=== PATIENT | female | born 1945 | race Caucasian/White ===

== ENCOUNTER 2016-12-19 14:49 | Emergency (ER) | payer OTHER ==
--- NOTE | ~2016-12-19 | CT57 ---
[facility] A Service of [facility] RADIOLOGY TEXT RESULTS PATIENT: CAROLA YEUNG LOCATION: [facility] : 43 UNIT #: [id number] AGE: [address]: Liam Tucker MD SEX: F ORDER DR: [id number] [facility] [address] [place], [place] [address] [id number] MR#: [id number] Acc #: [id number] NAME: CAORLA YEUNG : 1945 SEX: F STUDY DATE/TIME: 12/19/2016 16:59 UNIT: [facility] ROOM: STUDY DESCRIPTION: CT Chest Wo Cont Attending Physician: Liam Tucker M.D. Ordering Physician: Liam Tucker M.D. Primary Care Physician: Primary Care Physician No MEDICAL IMAGING REPORT This report is preliminary unless electronic signature is present EXAM CT chest without contrast HISTORY Diffuse chest pain for [address] examination was performed with one or more of the following radiation dose reduction techniques: automatic exposure control, adjustment of mA and/or kV according to patient size, and iterative reconstruction. FINDINGS CT chest without contrast demonstrates bulky adenopathy in the medial left supraclavicular fossa measuring 2.1 cm and additional adenopathy in the medial right supraclavicular fossa, measuring 1.2 cm. Adenopathy in the neck base bilaterally, and in the anterior upper mediastinum measuring 1.7 cm. Bulky anterior left upper mediastinal adenopathy measures 1.8 cm. Inferior right paratracheal/precarinal adenopathy measures 2.2 cm. Subcarinal adenopathy measures 1.7 cm. Additional left paraesophageal adenopathy inferior to the left hilum measures 1.8 cm. Moderate bilateral emphysema. Bilobed nodule in the lingula measures 0.9 cm x 1.2 cm. There is also a rounded nodule in the posterior right lower lobe measuring 1.2 cm, with adjacent linear atelectasis, and additional mild linear atelectasis in the posterior left lower lobe. In the presence of the adenopathy, the pulmonary nodules raise suspicion of malignancy. Consider PET/CT for further characterization of these findings. IMPRESSION 1. Bulky adenopathy in the neck base and in the medial left supraclavicular fossa and mild adenopathy in the medial right supraclavicular fossa and bulky multifocal mediastinal adenopathy as detailed above. There are pulmonary nodules, 1 in the posterior right STS. [facility] A Service of [facility] RADIOLOGY TEXT RESULTS PATIENT: CAROLA YEUNG LOCATION: [facility] : 43 UNIT #: [id number] AGE: [address]: Liam Tucker MD SEX: F ORDER DR: lower lobe measuring 1.2 cm and a lobulated nodule in the left lower lung in the lingula measuring 0.9 cm x 1.2 cm. Given the presence of the adenopathy, 1 or both of the pulmonary nodules could be malignant including lung carcinoma. Further characterization of these findings with PET/CT is recommended. 2. Bilateral emphysema, greater in the upper lobes. Dictated by... Carlitos Arrieta M.D. THIS IS AN ELECTRONICALLY VERIFIED REPORT Carlitos Arrieta M.D. at 12/20/2016 2:38 PM MARIA EUGENIA/pérez TD: 12/20/2016 08:16 JOB #: [id number] MEDICAL IMAGING REPORT Page 1 of 1 COPY
--- NOTE | ~2016-12-19 | CR72 ---
[facility] A Service of [facility] RADIOLOGY TEXT RESULTS PATIENT: CAROLA YEUNG LOCATION: [facility] : 44 UNIT #: [id number] AGE: [address]: Liam Tucker MD SEX: F ORDER DR: [id number] [facility] [address] [place], [place] [address] [id number] E MR#: [id number] Acc #: [id number] NAME: CAROLA YEUNG : 1945 SEX: F STUDY DATE/TIME: 12/19/2016 16:22 UNIT: [facility] ROOM: STUDY DESCRIPTION: CR Chest Single View Portable Attending Physician: Liam Tucker M.D. Ordering Physician: Liam Tucker M.D. Primary Care Physician: Primary Care Physician No MEDICAL IMAGING REPORT This report is preliminary unless electronic signature is present EXAM Portable chest HISTORY Chest pain for 2 weeks. Cough and congestion. No injury. FINDINGS The cardiac size and pulmonary vascularity are normal. Mild interstitial prominence in the lower lungs bilaterally, new compared to 04/02/2012, could reflect interstitial scarring or edema. There is also probable linear atelectasis in the right middle lobe versus small amount of fluid in the minor fissure. Mild pleural thickening in the lung apices. IMPRESSION 1. Mild interstitial prominence in the lower lungs bilaterally could be due to edema or atelectasis. No focal airspace consolidation. 2. Additional mild linear atelectasis versus small amount of fluid in the minor fissure in the right lower lung. Dictated by... Carlitos Arrieta M.D. THIS IS AN ELECTRONICALLY VERIFIED REPORT Carlitos Arrieta M.D. at 12/20/2016 2:35 PM DFOzzy/pérez TD: 12/20/2016 07:02 JOB #: [id number] MEDICAL IMAGING REPORT Page 1 of 1 COPY
--- NOTE | ~2016-12-19 | EKG ---
PATIENT: CAROLA YEUNG UNIT #: [id number] Ventricular Rate: 75 BPM Atrial Rate: 75 BPM P-R Interval: 154 ms QRS Duration: 88 ms Q-T Interval: 392 ms QTC Calculation(Bezet): 437 ms P [place]: 74 degrees Calculated R [place]: 81 degrees Calculated T [place]: 78 degrees Diagnosis Line: Normal sinus rhythm with sinus arrhythmia Diagnosis Line: Normal ECG Diagnosis Line: When compared with ECG of 02-APR-2012 07:49, Diagnosis Line: ST no longer elevated in Inferior leads Diagnosis Line: ST no longer depressed in Anterolateral leads Diagnosis Line: T wave inversion no longer evident in Diagnosis Line: Anterolateral leads Diagnosis Line: Confirmed by KOFI DEY MD ([id number]) on Diagnosis Line: 12/21/2016 8:35:52 AM INTERPRETING MD: YISSEL JORDAN
[~2016-12-19 14:49] MED LIST: CHEWABLE ASPIRI81 MG; FAMOTIDINE PO; IBUPROFEN200 M1; OMEPRAZOLE40 MG PO
[2016-12-19 15:54] LABS: POC - CKMB <1.0 ng/mL (0.0-7.9); POC - TROPONIN <0.05 ng/mL (<=0.05)
[2016-12-19 16:36] LABS: BASOPHIL# 0.1 X10e3 (0-0.3); BASOPHIL% 0.6 % (0-2.5); DIFF IND NO; EOSINOPHIL# 0.3 X10e3 (0-0.7); HEMOGLOBIN 14.2 gm/dL (12.0-16.0); LYMPHOCYTE# 3.8 X10e3 (1.0-3.5); LYMPHOCYTE% 35.5 % (17.0-45.0); MEAN CELL VOLUME 95.2 FL (83-96); MEAN CORPUSCULAR HEMOGLOBIN 31.4 PG (28-34); MEAN CORPUSCULAR HGB CONC 32.9 g/dL (30-36); MONOCYTE# 0.5 X10e3 (0-1.0); MONOCYTE% 4.3 % (3.0-12.0); NEUTROPHIL# 6.1 X10e3 (1.5-7.1); NEUTROPHIL% 56.6 % (40-75); PLATELET COUNT 229 X10e3 (140-420); RED BLOOD COUNT 4.51 X10e (3.90-5.30); RED CELL DISTRIBUTION WIDTH 13.5 % (11.0-15.5); WHITE BLOOD COUNT 10.8 X10e3 (4.0-10.5)
[2016-12-19 16:56] LABS: PARTIAL THROMBOPLASTIN TIME 26.9 SECONDS (23.5-31.3); PROTHROMBIN TIME (PATIENT) 10.3 SECONDS (9.6-11.5)
[2016-12-19 17:00] LABS: ALBUMIN SERUM 3.9 g/dL (3.5-5.0); BILIRUBIN, DIRECT 0.1 mg/dL (0.0-0.2); BILIRUBIN,INDIRECT 0.3 mg/dL (0.0-0.9); BILIRUBIN,TOTAL 0.4 mg/dL (0.2-2.0); BUN/CREATININE RATIO 28.33; CALCIUM SERUM 9.5 mg/dL (8.4-10.2); CREATININE SERUM 0.6 mg/dL (0.6-1.4); GLOM FILT RATE Estimated 91.1 mL/min (>60); POTASSIUM 4.4 mmol/L (3.5-5.1); PROTEIN TOTAL SERUM 7.7 g/dL (6.0-8.3)
[2016-12-19 19:06] LABS: POC - CKMB <1.0 ng/mL (0.0-7.9); POC - TROPONIN <0.05 ng/mL (<=0.05)
[2017-01-28] MEDS ORDERED: PERCOCET5/325 PO (11:11)
[2017-04-23] MEDS ORDERED: IPRATR-ALBUTEROL3 ML NEB (10:25)
[2017-04-23] MEDS ORDERED: DEXAMETHASONE4 MG PO (10:25)
[2017-04-23] MEDS ORDERED: ATIVAN PO (10:25)
[2017-04-23] MEDS ORDERED: GUAIFENESIN LA600 M1 PO (10:27)
[2017-04-23] MEDS ORDERED: DURAGESIC1 EAC1 TOP (10:27)
[2017-04-23] MEDS ORDERED: NYSTATIN100000 UN1 PO (10:28)
[2017-04-23] MEDS ORDERED: OXYCONTIN PO (10:28)
[2017-04-23] MEDS ORDERED: SENNA8.6 M1 PO (10:28)
[2017-04-23] MEDS ORDERED: TYL325 PO (10:29)
[2017-04-23] MEDS ORDERED: GAS-X125 MG PO (10:29)
[2017-04-23] MEDS ORDERED: PATIENT'S PHARMACY (10:30)
== END 2016-12-19 20:08 | disposition home or self-care (01) ==
LOC: CED 14:49
PROVIDERS: Emergency Medicine
DX: R07.89 Other chest pain (principal); R59.0 Localized enlarged lymph nodes; I25.2 Old myocardial infarction; F17.200 Nicotine dependence, unspecified, uncomplicated
CPT/HCPCS: 36415; 71010; 71250; 80048; 80076; 82553; 83880; 84484; 85025; 85610; 85730; 93005; 96372; 96374; 99284; J1885

== ENCOUNTER 2017-01-06 09:28 | Emergency (ER) | payer OTHER ==
--- NOTE | ~2017-01-06 | EKG ---
PATIENT: CAROLA YEUNG UNIT #: [id number] Ventricular Rate: 87 BPM Atrial Rate: 87 BPM P-R Interval: 156 ms QRS Duration: 78 ms Q-T Interval: 366 ms QTC Calculation(Bezet): 440 ms P [place]: 79 degrees Calculated R [place]: 75 degrees Calculated T [place]: 71 degrees Diagnosis Line: Normal sinus rhythm Diagnosis Line: Normal ECG Diagnosis Line: When compared with ECG of 19-DEC-2016 15:02, Diagnosis Line: No significant change was found Diagnosis Line: Confirmed by SHAHANA MACHUCA MD ([id number]) on Diagnosis Line: 01/06/2017 2:03:48 PM INTERPRETING MD: SVEN JORDAN
[2017-01-06 10:24] LABS: BASOPHIL# 0.1 X10e3 (0-0.3); BASOPHIL% 0.4 % (0-2.5); DIFF IND YES; EOSINOPHIL# 0.5 X10e3 (0-0.7); EOSINOPHIL% 3.1 % (0.0-7.0); HEMATOCRIT 44.9 % (35.0-45.0); HEMOGLOBIN 14.7 gm/dL (12.0-16.0); LYMPHOCYTE% 40.9 % (17.0-45.0); MEAN CELL VOLUME 95.4 FL (83-96); MEAN CORPUSCULAR HEMOGLOBIN 31.2 PG (28-34); MEAN CORPUSCULAR HGB CONC 32.7 g/dL (30-36); MEAN PLATELET VOLUME 7.5 FL (6.5-11.5); MONOCYTE# 0.9 X10e3 (0-1.0); MONOCYTE% 5.5 % (3.0-12.0); NEUTROPHIL# 8.5 X10e3 (1.5-7.1); NEUTROPHIL% 50.1 % (40-75); PLATELET COUNT 292 X10e3 (140-420); RED BLOOD COUNT 4.71 X10e (3.90-5.30); RED CELL DISTRIBUTION WIDTH 13.7 % (11.0-15.5)
[2017-01-06 10:33] LABS: BILIRUBIN, DIRECT 0.1 mg/dL (0.0-0.2); BILIRUBIN,INDIRECT 0.5 mg/dL (0.0-0.9); BILIRUBIN,TOTAL 0.6 mg/dL (0.2-2.0); BUN/CREATININE RATIO 41.42; CALCIUM SERUM 9.9 mg/dL (8.4-10.2); CREATININE SERUM 0.7 mg/dL (0.6-1.4); GLOM FILT RATE Estimated 86.6 mL/min (>60); POTASSIUM 3.9 mmol/L (3.5-5.1); PROTEIN TOTAL SERUM 7.6 g/dL (6.0-8.3)
[2017-01-06 10:55] LABS: PLATELET ESTIMATE NORMAL (NORMAL)
[2017-01-06 11:17] LABS: POC - CKMB <1.0 ng/mL (0.0-7.9); POC - TROPONIN <0.05 ng/mL (<=0.05)
[2017-01-28] MEDS ORDERED: PERCOCET5/325 PO (11:11)
[2017-04-23] MEDS ORDERED: DEXAMETHASONE4 MG PO (10:25)
[2017-04-23] MEDS ORDERED: ATIVAN PO (10:25)
[2017-04-23] MEDS ORDERED: IPRATR-ALBUTEROL3 ML NEB (10:25)
[2017-04-23] MEDS ORDERED: GUAIFENESIN LA600 M1 PO (10:27)
[2017-04-23] MEDS ORDERED: DURAGESIC1 EAC1 TOP (10:27)
[2017-04-23] MEDS ORDERED: OXYCONTIN PO (10:28)
[2017-04-23] MEDS ORDERED: NYSTATIN100000 UN1 PO (10:28)
[2017-04-23] MEDS ORDERED: SENNA8.6 M1 PO (10:28)
[2017-04-23] MEDS ORDERED: TYL325 PO (10:29)
[2017-04-23] MEDS ORDERED: GAS-X125 MG PO (10:29)
[2017-04-23] MEDS ORDERED: PATIENT'S PHARMACY (10:30)
== END 2017-01-06 12:09 | disposition home or self-care (01) ==
LOC: CED 09:28
PROVIDERS: Emergency Medicine; Physician Assistant Medical
DX: R59.0 Localized enlarged lymph nodes (principal); Z98.51 Tubal ligation status; F17.200 Nicotine dependence, unspecified, uncomplicated
CPT/HCPCS: 36415; 80048; 80076; 82553; 84484; 85025; 93005; 99284

== ENCOUNTER 2017-01-24 11:15 | Emergency (ER) | payer OTHER ==
--- NOTE | ~2017-01-24 | CR72 ---
[facility] A Service of [facility] & [facility] RADIOLOGY TEXT RESULTS PATIENT: CAROLA LYNCH LOCATION: [facility] : 44 UNIT #: [id number] AGE: [address]: Ulises Ruffin MD SEX: F ORDER DR: [id number] [facility] [address] [place], [place] [address] [id number] E MR#: [id number] Acc #: [id number] NAME: CAROLA YEUNG : 1945 SEX: F STUDY DATE/TIME: 01/24/2017 13:22 UNIT: [facility] ROOM: STUDY DESCRIPTION: CR Chest Single View Portable Attending Physician: Ramsey Ruffin M.D. Ordering Physician: Ed Neel Miles M.D. Primary Care Physician: Primary Care Physician No MEDICAL IMAGING REPORT This report is preliminary unless electronic signature is present EXAM Portable AP view of the chest COMPARISON October 19, 2016, April 02, 2012 and March 29, 2012. INDICATIONS 71-year-old female with dyspnea today. FINDINGS Band-like opacity in the right lung base is stable, favoring scarring. There is increased band-like opacity in the left lung base, possibly with new focal nodular opacity since December 19, 2016, measuring up to approximately 1.2 cm in the left lung base. Heart size is within normal limits. There is biapical emphysema. No evidence of pneumothorax or pleural effusion. There is abnormal density in the midline upper chest overlapping the rodolfo and lower trachea consistent with the large anterior mediastinal mass seen on PET CT of 5 days ago. It is noted on that exam that there is invasion and pathologic fracture of the manubrium and superior sternum. IMPRESSION 1. As compared to most recent chest radiograph, there is increased band-like opacity in the left lung base, favoring atelectasis. There is also new nodular density seen measuring up to 1.2 cm in the left lower lobe consistent with the nodule seen on PET CT and suspicious for metastatic disease given its FDG uptake. No evidence of pneumothorax, pleural effusion or consolidative pneumonia. 2. Anterior mediastinal mass is appreciated on the current chest radiograph, which on PET CT represents the patient's metastatic lung cancer with invasion of the sternum and manubrium. [facility]. [facility] A Service of [facility] & [facility] RADIOLOGY TEXT RESULTS PATIENT: CAROLA LYNCH LOCATION: [facility] : 44 UNIT #: [id number] AGE: [address]: Ulises Ruffin MD SEX: F ORDER DR: Dictated by... Michael Hernandez M.D. THIS IS AN ELECTRONICALLY VERIFIED REPORT Michael Hernandez M.D. at 02/01/2017 10:32 PM DEBBIE/cesar TD: 01/24/2017 20:38 JOB #: [id number] MEDICAL IMAGING REPORT Page 1 of 1 COPY
[2017-01-28] MEDS ORDERED: PERCOCET5/325 PO (11:11)
[2017-04-23] MEDS ORDERED: ATIVAN PO (10:25)
[2017-04-23] MEDS ORDERED: DEXAMETHASONE4 MG PO (10:25)
[2017-04-23] MEDS ORDERED: IPRATR-ALBUTEROL3 ML NEB (10:25)
[2017-04-23] MEDS ORDERED: DURAGESIC1 EAC1 TOP (10:27)
[2017-04-23] MEDS ORDERED: GUAIFENESIN LA600 M1 PO (10:27)
[2017-04-23] MEDS ORDERED: OXYCONTIN PO (10:28)
[2017-04-23] MEDS ORDERED: SENNA8.6 M1 PO (10:28)
[2017-04-23] MEDS ORDERED: NYSTATIN100000 UN1 PO (10:28)
[2017-04-23] MEDS ORDERED: GAS-X125 MG PO (10:29)
[2017-04-23] MEDS ORDERED: TYL325 PO (10:29)
[2017-04-23] MEDS ORDERED: PATIENT'S PHARMACY (10:30)
== END 2017-01-24 14:50 | disposition home or self-care (01) ==
LOC: CED 11:15
DX: C78.02 Secondary malignant neoplasm of left lung (principal); C80.1 Malignant (primary) neoplasm, unspecified; Z98.51 Tubal ligation status; Z98.890 Other specified postprocedural states
CPT/HCPCS: 71010; 99283

== ENCOUNTER → 2017-01-28 | Outpatient (CLI) | payer OTHER ==
[~2017-01-28] MED LIST changes: +ATIVAN PO; +COMBIVENT MININEB INH; +DEXAMETHASONE4 MG PO; +DURAGESIC1 EAC1 TD; +DURAGESIC1 EAC1 TOP; +GAS-X125 MG PO; +GUAIFENESIN LA600 M1 PO; +HUMIBID-LA600 MG PO; +IPRATR-ALBUTEROL3 ML NEB; +LEVAQUIN750 M1 PO; +LORAZEPAM1 MG PO; +LOVENOX40 MG/0.4 SUBQ; +NYSTATIN1 EAC1 MT; +NYSTATIN100000 UN1 PO; +OXYCODONE HCL10 MG PO; +OXYCODONE HCL20 M1 PO; +OXYCODONE HCL30 MG PO; +OXYCONTIN PO; +PATIENT'S PHARMACY; +PERCOCET5/325 PO; +PREDNISONE; +ROXANOL W/DR20 MG/ML PO; +SENNA-S TABLET1 EAC1 PO; +SENNA8.6 M1 PO; +SIMETHICONE125 M1 PO; +TYL325 PO
--- NOTE | ~2017-01-28 | XA91 ---
[facility] A Service of [facility] RADIOLOGY TEXT RESULTS PATIENT: CAROLA LYNCH LOCATION: [facility] : 43 UNIT #: [id number] AGE: [address]: Alok Crandall MD SEX: F ORDER DR: [id number] [facility] [address] [place], [place] [address] [id number] O MR#: [id number] Acc #: [id number] NAME: CAROLA LYNCH : 1945 SEX: F STUDY DATE/TIME: 01/28/2017 12:09 UNIT: [facility] ROOM: STUDY DESCRIPTION: XA CVC Tunneled W Port Attending Physician: Alok Crandall M.D., Ph.D. Referring Physician: Alok Crandall M.D., Ph.D. Ordering Physician: Alok Crandall M.D., Ph.D. Primary Care Physician: Primary Care Physician No MEDICAL IMAGING REPORT This report is preliminary unless electronic signature is present EXAM Mediport placement under ultrasound fluoroscopy. HISTORY SUPPLIED Metastatic lung cancer. The procedure intent, risks and options were discussed with the patient through her son who served as an interpreter translator. They both understand and wish to proceed. The patient has extensive toscano and multiple skin grafts over the upper chest and neck. After examining the patient it was felt that the right side was likely more accessible and this was chosen. The skin was prepped and draped over the right neck and upper chest. Ultrasound examination of the right internal jugular shows it to be patent. A micropuncture was performed and subsequently an introducer sheath placed. A ultra slim Mediport was selected. A site was chosen over the right anterior chest wall, skin was anesthetized with 1% Lidocaine with Epinephrine. A port pocket was blunted dissected. in the right side was likely more accessible and this was chosen. The skin was prepped and draped over the right neck and upper chest. Also EXAM Right internal jugular shows a patent. A micropuncture was performed and subsequently a initiation sheath placed. A slim of ultra slim MediPort was selected. A site was chosen over the right anterior chest wall skin was then assessed with the lidocaine with epinephrine. Port pocket was bluntly dissected. The tunneler was passed to the right IJ site and tube was trimmed to 20 cm and deployed with the tip in the SVC. The right IJ site was closed with a single 3-0 Vicryl suture in the deep fascia. The port was closed with a 3-0 Vicryl interrupted suture in the deep fascia. The dermis was not sutured due to the skin grafts. Dermabond was placed over the right IJ site and the anterior chest wall site. The port was STS. [facility] A Service of [facility] RADIOLOGY TEXT RESULTS PATIENT: CAROLA LYNCH LOCATION: [facility] : 44 UNIT #: [id number] AGE: [address]: Alok Crandall MD SEX: F ORDER DR: flushed with Heparin solution. Conscious sedation was administered during the procedure. The patient was monitored by the IR nurse and the procedure very well tolerated. Total fluoroscopy time was 0.4 minutes. A single spot radiograph was obtained. Total exposure estimated at 1 mGy air kerma standard. CONCLUSION Successful placement of a right-sided Mediport, tip in the SVC under ultrasound and fluoroscopy. Dictated by... Bear Hudson M.D. THIS IS AN ELECTRONICALLY VERIFIED REPORT Bear Hudson M.D. at 01/30/2017 9:32 AM NATALIIA/benny TD: 01/28/2017 21:32 JOB #: [id number] MEDICAL IMAGING REPORT Page 1 of 1 COPY
[2017-01-28 11:04] LABS: HEMATOCRIT 39.3 % (35.0-45.0); HEMOGLOBIN 12.8 gm/dL (12.0-16.0); MEAN CELL VOLUME 94.8 FL (83-96); MEAN CORPUSCULAR HGB CONC 32.7 g/dL (30-36); MEAN PLATELET VOLUME 6.9 FL (6.5-11.5); RED BLOOD COUNT 4.14 X10e (3.90-5.30); WHITE BLOOD COUNT 10.9 X10e3 (4.0-10.5)
[2017-01-28 11:37] LABS: PARTIAL THROMBOPLASTIN TIME 28.3 SECONDS (23.5-31.3); PROTHROMBIN TIME (PATIENT) 10.8 SECONDS (10.0-11.7)
== END | disposition home or self-care (01) ==
LOC: CLAB 09:37 → CIVR 09:37
PROVIDERS: Internal Medicine Hematology & Oncology
PROC: 02HV33Z Insertion of Infusion Device into Superior Vena Cava, Percutaneous Approach (ICD-10-PCS; principal; 2017-01-28)
DX: C34.80 Malignant neoplasm of overlapping sites of unspecified bronchus and lung (principal); C77.1 Secondary and unspecified malignant neoplasm of intrathoracic lymph nodes; Z45.2 Encounter for adjustment and management of vascular access device; J43.9 Emphysema, unspecified; Z87.891 Personal history of nicotine dependence
CPT/HCPCS: 36415; 76937; 77001; 85027; 85610; 85730; C1894; J0690; J1642; J2250; J3010

== ENCOUNTER 2017-02-07 18:58 | Emergency (ER) | payer OTHER ==
--- NOTE | ~2017-02-07 | EKG ---
PATIENT: CAROLA LYNCH UNIT #: [id number] Ventricular Rate: 106 BPM Atrial Rate: 106 BPM P-R Interval: 156 ms QRS Duration: 76 ms Q-T Interval: 344 ms QTC Calculation(Bezet): 456 ms P [place]: 79 degrees Calculated R [place]: 80 degrees Calculated T [place]: 61 degrees Diagnosis Line: Sinus tachycardia Diagnosis Line: Otherwise normal ECG Diagnosis Line: Diagnosis Line: Confirmed by KOFI DEY MD ([id number]) on Diagnosis Line: 02/08/2017 11:07:37 AM INTERPRETING MD: YISSEL JORDAN
[~2017-02-07 18:58] MED LIST changes: -ATIVAN PO; -COMBIVENT MININEB INH; -DEXAMETHASONE4 MG PO; -DURAGESIC1 EAC1 TD; -DURAGESIC1 EAC1 TOP; -GAS-X125 MG PO; -GUAIFENESIN LA600 M1 PO; -HUMIBID-LA600 MG PO; -IPRATR-ALBUTEROL3 ML NEB; -LEVAQUIN750 M1 PO; -LORAZEPAM1 MG PO; -LOVENOX40 MG/0.4 SUBQ; -NYSTATIN1 EAC1 MT; -NYSTATIN100000 UN1 PO; -OXYCODONE HCL10 MG PO; -OXYCODONE HCL20 M1 PO; -OXYCODONE HCL30 MG PO; -OXYCONTIN PO; -PATIENT'S PHARMACY; -PREDNISONE; -ROXANOL W/DR20 MG/ML PO; -SENNA-S TABLET1 EAC1 PO; -SENNA8.6 M1 PO; -SIMETHICONE125 M1 PO; -TYL325 PO
[2017-02-07 20:00] LABS: BASOPHIL% 0.3 % (0-2.5); EOSINOPHIL# 0.1 X10e3 (0-0.7); EOSINOPHIL% 1.2 % (0.0-7.0); HEMATOCRIT 38.5 % (35.0-45.0); HEMOGLOBIN 12.7 gm/dL (12.0-16.0); LYMPHOCYTE# 1.8 X10e3 (1.0-3.5); LYMPHOCYTE% 18.2 % (17.0-45.0); MEAN CELL VOLUME 94.5 FL (83-96); MEAN CORPUSCULAR HEMOGLOBIN 31.3 PG (28-34); MEAN CORPUSCULAR HGB CONC 33.1 g/dL (30-36); MEAN PLATELET VOLUME 7.4 FL (6.5-11.5); MONOCYTE# 0.5 X10e3 (0-1.0); MONOCYTE% 4.9 % (3.0-12.0); NEUTROPHIL# 7.4 X10e3 (1.5-7.1); NEUTROPHIL% 75.4 % (40-75); PLATELET COUNT 269 X10e3 (140-420); RED BLOOD COUNT 4.07 X10e (3.90-5.30); RED CELL DISTRIBUTION WIDTH 13.9 % (11.0-15.5); WHITE BLOOD COUNT 9.8 X10e3 (4.0-10.5)
[2017-02-07 20:01] LABS: DIFF IND NO
[2017-02-07 20:10] LABS: POC - CKMB 2.4 ng/mL (0.0-7.9); POC - TROPONIN <0.05 ng/mL (<=0.05)
[2017-02-07 20:19] LABS: ALBUMIN SERUM 3.4 g/dL (3.5-5.0); BILIRUBIN, DIRECT 0.1 mg/dL (0.0-0.2); BILIRUBIN,INDIRECT 0.9 mg/dL (0.0-0.9); BUN/CREATININE RATIO 23.33; CALCIUM SERUM 10.2 mg/dL (8.4-10.2); CREATININE SERUM 0.6 mg/dL (0.6-1.4); GLOM FILT RATE Estimated 91.1 mL/min (>60); POTASSIUM 3.9 mmol/L (3.5-5.1); PROTEIN TOTAL SERUM 7.8 g/dL (6.0-8.3)
[2017-02-07 20:55] LABS: URINE SOURCE CLEAN CATCH
[2017-02-07 21:00] LABS: URINE APPEARANCE CLOUDY; URINE BILIRUBIN NEG (NEG); URINE BLOOD 2+ (NEG); URINE COLOR YELLOW; URINE GLUCOSE NEG (NEG); URINE KETONE 2+ (NEG); URINE LEUKOCYTE ESTERASE 2+ (NEG); URINE NITRATE POS (NEG); URINE PROTEIN TRACE (NEG); URINE SPECIFIC GRAVITY 1.022 (1.003-1.035)
[2017-02-07 21:02] LABS: CULTURE INDICATED? YES; URINE BACTERIA AUWI 4+ (NEGATIVE); URINE SQUAMOUS EPITHELIAL CELL FEW /[HPF]; UWBCS1 AUWI 100-200 (0-5)
[2017-04-23] MEDS ORDERED: IPRATR-ALBUTEROL3 ML NEB (10:25)
[2017-04-23] MEDS ORDERED: DEXAMETHASONE4 MG PO (10:25)
[2017-04-23] MEDS ORDERED: ATIVAN PO (10:25)
[2017-04-23] MEDS ORDERED: GUAIFENESIN LA600 M1 PO (10:27)
[2017-04-23] MEDS ORDERED: DURAGESIC1 EAC1 TOP (10:27)
[2017-04-23] MEDS ORDERED: SENNA8.6 M1 PO (10:28)
[2017-04-23] MEDS ORDERED: NYSTATIN100000 UN1 PO (10:28)
[2017-04-23] MEDS ORDERED: OXYCONTIN PO (10:28)
[2017-04-23] MEDS ORDERED: TYL325 PO (10:29)
[2017-04-23] MEDS ORDERED: GAS-X125 MG PO (10:29)
[2017-04-23] MEDS ORDERED: PATIENT'S PHARMACY (10:30)
== END 2017-02-07 22:05 | disposition home or self-care (01) ==
LOC: CED 18:58
PROVIDERS: Emergency Medicine
DX: N30.90 Cystitis, unspecified without hematuria (principal); C34.90 Malignant neoplasm of unspecified part of unspecified bronchus or lung
CPT/HCPCS: 36415; 80048; 80076; 81003; 82150; 82553; 83690; 84484; 85025; 87086; 87088; 87186; 93005; 96361; 96374; 99284; J2405

== ENCOUNTER 2017-03-04 08:00 | Inpatient (IN) | payer MEDICARE, OTHER ==
[~2017-03-04] VITALS: Ht 157.5 cm; Wt 48.0 kg
--- NOTE | ~2017-03-04 | CO ---
Unit #: [id number] #: [id number] Patient: CAROLA LYNCH [id number] [address] [address] [id number] I MR#: [id number] NAME: CAROLA LYNCH ROOM: 325 Age: 71 Sex: F Admission Date: 03/04/2017 : 1945 Attending Physician: Williams Klein M.D. Primary Care Physician: No Primary Care Physician Consultation Date: 03/05/2017 CONSULTATION REPORT HISTORY OF PRESENT ILLNESS The patient presents today with increasing shortness of breath. She is origin and does not speak Micronesian, but her son who is at the bedside, is fluent in Micronesian, so on questioning she states that she is just having increasing shortness of breath. No pain. The patient is a 71-year-old lady with stage 3b khr-ihrko-iujt lung cancer appears to have had no success with chemoradiation therapy with possible progressive disease, intractable pain. Dr. Alok Crandall, is the primary oncologist. SOCIAL HISTORY The patient quit smoking. No alcohol usage. She is a reformed smoker. She has more than 30 pack smoking history. FAMILY HISTORY Negative for cluster of cancers. ALLERGIES No known drug allergies. CURRENT MEDICATIONS 1. Percocet. 2. Lorazepam. 3. Oxycodone. REVIEW OF SYSTEMS Mainly increasing shortness of breath and ill health. Otherwise six or eight systems were within normal limits. PHYSICAL EXAMINATION GENERAL: She appears uncomfortable. LUNGS: Some rattling sounds. Decreased air entry bilaterally. Worse on the right than the left. HEART: Distant S1 and S2. ABDOMEN: No palpable liver or spleen. EXTREMITIES: NEUROLOGIC: Not examined in detail. PELVIC/BREAST: Not done. ASSESSMENT/PLAN This 71-year-old lady with cjm-hkfto-bara lung cancer stage 3b has evidence of progressive disease, worsening pleural effusion. At this point the benefits and risks were explained. I told the son and he Unit #: [id number] #: [id number] Patient: CAROLA LYNCH interpreted to the mother that we need to do a right-sided thoracocentesis as soon as possible, then depending on the findings proceed further. Dictated by... Mckay Marks M.D. SPS/gz TD: 03/05/2017 14:18 JOB #: [id number] CC: Williams Klein M.D. CONSULTATION REPORT Page 1 of 1 X Mckay Marks MD X CONSULTATION REPORT
--- NOTE | ~2017-03-04 | OR ---
Unit #: [id number] #: [id number] Patient: CAROLA LYNCH [id number] [address] [address] [id number] I MR#: [id number] NAME: CAROLA LYNCH ROOM: 325 Date of Procedure: 03/05/2017 Admission Date: 03/04/2017 Surgeon: Oz Fry M.D. : 1945 Attending Physician: Williams Klein M.D. Primary Care Physician: No Primary Care Physician PROCEDURE OPERATIVE NOTE PREOPERATIVE DIAGNOSIS Pneumonia and lung cancer. POSTOPERATIVE DIAGNOSIS 1. Large thick yellowish secretions obstructing the left main bronchus. 2. Abnormal growth at the level of the left lower lobe and lingula, status post biopsy. 3. Mild narrowing of the trachea, but no endobronchial lesion. PROCEDURE PERFORMED Diagnostic and therapeutic bronchoscopy with washing and endobronchial biopsy. ANESTHESIA MAC sedation. PROCEDURE After informed consent was obtained from the patient, explaining the benefits and risks of this procedure, the patient was prepped and positioned in the appropriate way. After she was premedicated with propofol, the bronchoscope was advanced through the oral cavity and at the level of her vocal cords 2% lidocaine was instilled and the bronchoscope was advanced through the vocal cord with no problem. Then at the last third of her trachea a large thick, yellowish/greenish mucus plug extending into the left main bronchus. It was aspirated with normal saline flushes and then the bronchoscope was advanced into the left main bronchus, which appeared to have mucosal abnormal growth with no discrete mass. Endobronchial biopsy and washing were obtained from that spot, which will be sent for microbiology/cytology. The patient tolerated her procedure well with no immediate complications. The bronchoscope was retracted out. Dictated by... Oz Fry M.D. EA/aniket TD: 03/05/2017 12:16 JOB #: [id number] Unit #: [id number] #: [id number] Patient: CAROLA LYNCH PROCEDURE OPERATIVE NOTE Page 1 of 1 X HAJ ALI, EHAB MD X PROCEDURE OPERATIVE NOTE
--- NOTE | ~2017-03-04 | CO ---
Unit #: [id number] #: [id number] Patient: CAROLA LYNCH [id number] [address] [address] [id number] I MR#: [id number] NAME: CAROLA LYNCH ROOM: 325 Age: 71 Sex: F Admission Date: 03/04/2017 : 1945 Attending Physician: Williams Klein M.D. Primary Care Physician: No Primary Care Physician Consultation Date: 03/04/2017 CONSULTATION REPORT REASON FOR CONSULT Shortness of breath. HISTORY OF PRESENT ILLNESS This is a 71-year-old female who does not speak Trinidadian, and all her history was obtained from her son who is at bedside. 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 The last course was a week ago. The patient presented to the emergency room with a few days' history of progressive shortness of breath and cough with sputum production. There was no fever, chills or night sweats. No nausea, vomiting or diarrhea. In the emergency room her chest x-ray was consistent with right-sided pleural effusion with possible bronchiectasis. PAST MEDICAL HISTORY 1. Malnutrition. 2. Small cell lung cancer. 3. Myocardial infarction and coronary artery disease. PAST SURGICAL HISTORY 1. Tubal ligation. 2. Skin grafts. 3. Port placement. HOME MEDICATIONS 1. Percocet. 2. Oxycodone. 3. Lorazepam. ALLERGIES No known drug allergies. SOCIAL HISTORY No history of smoking, alcohol or drug abuse, but she used to be a smoker before. FAMILY HISTORY Noncontributory. REVIEW OF SYSTEMS Twelve-point review of systems was obtained and was negative except for what was mentioned in the HPI. Unit #: [id number] #: [id number] Patient: CAROLA LYNCH PHYSICAL EXAMINATION GENERAL: The patient is in mild respiratory distress. VITAL SIGNS: Blood pressure 107/53, respiratory rate 22, O2 saturation 96% on 2 liters nasal cannula. HEENT: Atraumatic, normocephalic. PERRLA, EOMI. NECK: Supple. No JVD. No lymphadenopathy. CHEST: Diffuse bilateral rhonchi and wheezing. HEART: S1, S2. No murmur, gallops or rubs. ABDOMEN: Soft, nontender. Bowel sounds positive. No hepatosplenomegaly. EXTREMITIES: No edema or cyanosis. SKIN: No rashes. CYLINDER PRESS OPERATOR: Awake, alert, oriented. No focal motor/sensory deficits. LABS AND OTHER TESTS LABORATORY: Creatinine is 0.6, sodium 128. White blood count 6, hemoglobin 11.5. IMAGING TESTS: Chest x-ray is consistent with right-sided pneumonia and effusion. ASSESSMENT 1. Acute hypoxic respiratory failure. 2. Healthcare-associated pneumonia, gram-negative/methicillin-resistant Staphylococcus aureus. 3. Right-sided pleural effusion. 4. Small cell lung cancer. 5. Malnutrition. PLAN 1. Will continue to wean oxygen down as tolerated. 2. Bronchodilator and mucolytics and antitussives. 3. Broad-spectrum antibiotics pending culture. 4. Will proceed with bronchoscopy in the morning for both diagnostic and therapeutic purposes. 5. Right-sided thoracentesis. 6. Deep vein thrombosis prophylaxis. NOTE: I would like to thank you for allowing me to be part of this patient's care. Dictated by... Kendall Stallworth TD: 03/05/2017 12:09 JOB #: [id number] Unit #: [id number] #: [id number] Patient: ANJANA CLANCYQUEZCAROLA CONSULTATION REPORT Page 1 of 1 X DONI MUSE MD X CONSULTATION REPORT
--- NOTE | ~2017-03-04 | A ---
[facility] Nutrition Therapy DATE: 03/05/17 Patient: CAROLA YEUNG DINESH Physician: GERI Address: [address] [place] [address] Room/Bed: [address] [place] [address], Zip: [place] [address] Admit Date: 03/04/17 Date of : [birth year] Height: 5 2 Weight: 101 46 NUTRITIONAL ASSESSMENT: REASON: Low BMI 71 yo female admitted for SOB, pleural effusion PMH: Lung cancer s/p chemo and radiation, MD, multiple skin grafts Anthropometrics: Ht: 5'2" wt: 46 kg BMI: 18.5 IBW: 50 kg, 92% IBW Labs: Na+ 128 K+ 3.2 Cl- 92 Gluc 127 Alb 3.2 Mg++ 1.4 Accuchecks 134-142 Amylase 55 Meds: Novolog, solu-medrol, phenergan, KCl, D5%, NaCl I/O & Bowel function: 1395/359, last BM 03/05 Skin Integrity: No breakdown noted, no edema Estimated Nutrition Needs: Increased due to PMH and low BMI Diet: NPO (for procedure) Assessment: Chart reviewed, events noted. 71 yo female admitted for SOB and pleural effusion. Pt is currently NPO for bronchial washing, which she just returned from. RD reports that pt's diet will resume in a couple of hours. RD spoke with the pt's son at bedside, as the pt speaks bengali only. Pt's son reports that her weight fluctuates, and that he does not believe she has not lost a significat amount of weight recently. Pt's son also reports that he gets her Ensure supplements to drink at home, and that she typically consumes one per day. RD stressed the importance of adequate, balanced nutritional intake. Pt's son agreed, stating that he will discuss this with the pt. Pt's son denied having any questions at this time. Dx: Underweight RT PMH AEB BMI 18.5. Intervention: 1. Advance to a regular diet once feasible 2. Ensure BID Monitoring, Evaluation and Goals: 1. Oral intake; advance diet, consume 50-100% of meals 2. Labs; Na+, K+, glucose, Mg++, amylase 3. Weight; prevent weight loss [facility] Therapy DATE: 03/05/17 Patient: CAROLA MONTIEL Physician: GERI Address: [address] [place] [address] Room/Bed: [address] [place] [address], Zip: [place] [address] Admit Date: 03/04/17 Date of : [birth year] Height: 5 2 Weight: 101 46 Recommendations: 1. Advance to a regular diet once medically feasible. 2. Once diet advanced, order Ensure chocolate BID with meals. 3. Replete electrolytes to WNL PRN (Na+, K+, Mg++ low) Pt is at mild nutriitonal risk. RD will follow hospital course per protocol. Respectfully, PRISCILLA ESTRADA, RYAN, LD [facility] cc: client file
--- NOTE | ~2017-03-04 | EKG ---
PATIENT: CAROLA LYNCH UNIT #: [id number] Ventricular Rate: 120 BPM Atrial Rate: 120 BPM P-R Interval: 140 ms QRS Duration: 76 ms Q-T Interval: 322 ms QTC Calculation(Bezet): 455 ms P [place]: 80 degrees Calculated R [place]: 82 degrees Calculated T [place]: 64 degrees Diagnosis Line: Sinus tachycardia with occasional Premature Diagnosis Line: ventricular complexes Diagnosis Line: Otherwise normal ECG Diagnosis Line: When compared with ECG of 07-FEB-2017 19:21, Diagnosis Line: Premature ventricular complexes are now Present Diagnosis Line: Confirmed by KOFI DEY MD ([id number]) on Diagnosis Line: 03/04/2017 1:34:09 PM INTERPRETING MD: YISSEL JORDAN
--- NOTE | ~2017-03-04 | CR72 ---
[facility] A Service of [facility] RADIOLOGY TEXT RESULTS PATIENT: CARLOA LYNCH LOCATION: C3A 325-01 : 44 UNIT #: [id number] AGE: [address]: ISMAEL CANAS MD SEX: F ORDER DR: [id number] [facility] [address] [facility]. [place], [place] [address] [id number] E MR#: [id number] Acc #: [id number] NAME: CAROLA LYNCH : 1945 SEX: F STUDY DATE/TIME: 03/04/2017 8:31 UNIT: [facility] ROOM: STUDY DESCRIPTION: CR Chest Single View Portable Attending Physician: Ulises Randall M.D. Ordering Physician: Ulises Randall M.D. Primary Care Physician: Primary Care Physician No MEDICAL IMAGING REPORT This report is preliminary unless electronic signature is present EXAM Portable chest HISTORY Shortness of breath and chest pain for the past day. COMPARISON 01/24/2017. TECHNIQUE A single AP view of the chest was obtained. FINDINGS A port is seen on the right. The tip is in good position. Upper mediastinal widening is again noted and unchanged. Heart size is normal. Aeration at the left lung base has improved since the previous examination. There is still a small band of linear scarring or atelectasis at the left base. There is blunting of the right costophrenic angle suggesting a right-sided effusion versus chronic pleural thickening and volume loss. This is slightly increased since the previous exam. Vascular markings are normal. IMPRESSION 1. Increased density at the right costophrenic angle suggesting an enlarging pleural effusion when compared to the previous exam. 2. Aeration at the left lung base has improved since the previous examination. 3. Mediastinal widening is again noted consistent with mediastinal adenopathy. A port is in satisfactory position. Dictated by... [facility] A Service of [facility] RADIOLOGY TEXT RESULTS PATIENT: CAROLA LYNCH LOCATION: [facility] 325-01 : 44 UNIT #: [id number] AGE: [address]: ISMAEL CANAS MD SEX: F ORDER DR: Liam Farris M.D. THIS IS AN ELECTRONICALLY VERIFIED REPORT Liam Farris M.D. at 03/04/2017 3:39 PM MARY KAY/pérez TD: 03/04/2017 09:45 JOB #: [id number] MEDICAL IMAGING REPORT Page 1 of 1 COPY
--- NOTE | ~2017-03-04 | XA203 ---
[facility] A Service of [facility] RADIOLOGY TEXT RESULTS PATIENT: CAROLA LYNCH LOCATION: [facility] 325-01 : 44 UNIT #: [id number] AGE: [address]: Candace Mittal MD SEX: F ORDER DR: [id number] [place] [id number] [facility]. [place], [place] [address] [id number] I MR#: [id number] Acc #: [id number] NAME: CAROLA LYNCH : 1945 SEX: F STUDY DATE/TIME: 03/05/2017 14:11 UNIT: [address] ROOM: [facility] STUDY DESCRIPTION: XA Thoracentesis Attending Physician: Candace Mittal M.D. Ordering Physician: Oz Fry M.D. Primary Care Physician: No Primary Care Physician MEDICAL IMAGING REPORT This report is preliminary unless electronic signature is present EXAM Thoracentesis. INDICATION Right pleural effusion identified on a portable chest radiograph performed March 04, 2017. PROCEDURE Preliminary ultrasound of the right hemithorax was performed which demonstrated insufficient volume of fluid for thoracentesis at this time. The procedure was subsequently terminated. IMPRESSION Insufficient volume of fluid for thoracentesis at this time. Dictated by... Caitlin Rodrigez M.D. THIS IS AN ELECTRONICALLY VERIFIED REPORT Caitlin Rodrigez M.D. at 03/08/2017 5:06 PM AFF/tmw TD: 03/08/2017 15:15 JOB #: [id number] MEDICAL IMAGING REPORT Page 1 of 1 COPY
--- NOTE | ~2017-03-04 | DS ---
Unit #: [id number] #: [id number] Patient: CAROLA LYNCH [id number] [address] [address] [id number] I MR#: [id number] NAME: CAROLA LYNCH ROOM: 325 Age: 71 Sex: F Admission Date: 03/04/2017 : 1945 Discharge Date: 03/09/2017 Attending Physician: Candace Mittal M.D. Primary Care Physician: No Primary Care Physician DISCHARGE SUMMARY PRIMARY CARE PROVIDER None. PRINCIPAL DIAGNOSES 1. Acute hypoxic respiratory failure, secondary to #2. 2. Bibasilar pneumonia. 3. Left upper extremity deep venous thrombosis. 4. Symptomatic right pleural effusion, likely related to underlying nonsmall cell lung cancer. 5. Stage IIIb nonsmall cell lung cancer. 6. Escherichia coli urinary tract infection. 7. Hyponatremia, hypovolemic. 8. Hypokalemia. 9. Hypomagnesemia. 10. Normocytic anemia. 11. Coronary artery disease. 12. Acute exacerbation of chronic obstructive pulmonary disease. 13. Severe protein malnutrition. 14. Underweight. 15. Anxiety. CONSULTANTS 1. Dr. Marks, Oncology. 2. Dr. Fry, Pulmonology. PROCEDURES 1. Attempted right-sided thoracentesis on March 05, 2017 with insufficient volume of fluid for thoracentesis. 2. Chest x-ray on March 04, 2017 with increasing density of the right costophrenic angle suggestive of increasing pleural effusion. Mediastinal widening is noted. There is mediastinal adenopathy. 3. Left upper extremity venous Doppler which is positive for DVT. CLINICAL HISTORY AND HOSPITAL COURSE Ms. Hardy Nagy is a 71-year-old New Zealander-speaking female who presents to the emergency department with increasing shortness of breath. Chest x-ray revealed an increasing right-sided pleural effusion. Patient was found to be hypoxic. There are concerns about perhaps underlying pneumonia; however, I will note patient's white blood cell count upon presentation was normal at 6. However, she was hypokalemic, hyponatremic, and hypomagnesemic. Patient was subsequently admitted. Patient was started on broad-spectrum IV antibiotics. Both hematology and pulmonology were consulted. Patient was continued on oxygen therapy. Unit #: [id number] #: [id number] Patient: CAROLA LYNCH Attempts at right-sided thoracentesis revealed that the fluid collection was too small and it was not done. Sputum cultures were nondiagnostic. The patient was started on broad-spectrum antibiotics and will be discharged home on Levaquin. Her associated acute hypoxic respiratory failure has resolved with supportive measures in addition to IV steroids due to an associated COPD exacerbation. She will be discharged home on Levaquin. I am currently awaiting an ambulating O2 saturation to ensure this is normal to determine oxygen requirements at home. Patient was also found to have an E. coli urinary tract infection which is also sensitive to Levaquin and will be treated on an outpatient basis. Patient developed swelling of her left upper extremity and was found to have left upper extremity DVT. She was placed on Lovenox in the hospital and will be maintained on Lovenox in the short term as an outpatient, per Dr. Marks's request. Patient today looked significantly improved. She will be discharged home pending oxygen evaluation. DISCHARGE CONDITION Stable. DISCHARGE STATUS Discharge to home. DISCHARGE MEDICATIONS 1. DuoNeb nebulizer treatments 3 mL every six hours p.r.n. shortness of breath. 2. Prednisone 10 mg tablets four times daily for three days, then three tablets for three days, then two tablets for three days, then one tablet for three days, then discontinue. 3. Lovenox 40 mg subcutaneously q.12 hours. 4. Ativan 1 mg p.o. b.i.d. 5. Guaifenesin 600 mg twice daily. 6. Oxycodone 10 mg p.o. q.4 hours p.r.n. for pain. 7. Levaquin 750 mg p.o. daily for seven days. 8. Requirement for oxygen if needed will be dictated as an addendum. DISCHARGE INSTRUCTIONS 1. The patient is instructed to follow a regular diet. 2. She can increase her activity as tolerated. 3. Family is currently refusing home health. FOLLOWUP 1. Patient should follow up with Dr. Prater of pulmonology in approximately two weeks. At that time, can discuss addition of perhaps Breo Ellipta. 2. Patient will follow up with Dr. Marks in one to two weeks as well. Time spent on discharge today, 53 minutes. Dictated by... Candace Mittal M.D. Unit #: [id number] #: [id number] Patient: CAROLA LYNCH/yogesh TD: 03/10/2017 11:14 JOB #: [id number] DISCHARGE SUMMARY Page 1 of 1 X Candace Mittal MD X DISCHARGE SUMMARY
--- NOTE | ~2017-03-04 | HP ---
Unit #: [id number] #: [id number] Patient: CAROLA LYNCH [id number] [address] [address] [id number] I MR#: [id number] NAME: CAROLA LYNCH ROOM: 325 Age: 71 Sex: F Admission Date: 03/04/2017 : 1945 Attending Physician: Ismael Fry M.D. HISTORY AND PHYSICAL CHIEF COMPLAINT Shortness of breath. HISTORY OF PRESENT ILLNESS The patient is a 71-year-old female with a history of lung cancer, status post chemo and radiation, and the last chemo was a week ago. She presented to the emergency room complaining of shortness of breath which started yesterday. The patient is a poor historian, and the history is obtained by speaking to the patient's son at the bedside. The patient denies any productive cough or chills. The patient was found to have an enlarging pleural effusion, and the ER doctor was concerned that patient had pneumonia, and she is being admitted for the above reasons. PAST MEDICAL HISTORY 1. Lung cancer. 2. Myocardial infarction. PAST SURGICAL HISTORY 1. Multiple skin grafts. 2. Tubal ligation. HOME MEDICATIONS 1. Percocet. 2. Oxycodone. 3. Lorazepam. ALLERGIES No known drug allergies. SOCIAL HISTORY No history of smoking cigarettes, alcohol, or any illicit drug abuse. FAMILY HISTORY Reviewed and none. REVIEW OF SYSTEMS Positive for shortness of breath. Positive for pain. Denies any fever, denies any chills, and denies any headache. Other systems reviewed and none. PHYSICAL EXAMINATION GENERAL: Patient is lying in bed not in acute distress. VITAL SIGNS: Temperature 97.9, pulse 133, respiratory rate 38, blood pressure 113/99, and saturating 86% on room air. Unit #: [id number] #: [id number] Patient: CAROLA LYNCH HEENT: Head atraumatic, normocephalic. NECK: Patient has had multiple skin grafts. LUNGS: Decreased air entry at the bases. Coarse breath sounds. HEART: Regular rate and rhythm. ABDOMEN: Soft. Positive bowel sounds. EXTREMITIES: No cyanosis, no clubbing. NEUROLOGIC: Awake and alert. DIAGNOSTIC STUDIES LABORATORY: Her pH is 7.45, PCO2 of 33.1, PO2 of 79.3, bicarb 23.4, and oxygen saturation 94.1. WBC 6, hemoglobin 11.5, hematocrit 35, and platelets 217,000. Troponin less than 0.05. Lactic acid 1.1. INR is 1.1. Sodium 128, potassium 3.2, chloride 92, bicarb 23, glucose 127, BUN 21, creatinine 0.6, alkaline phosphatase 104, and albumin 3.2. Amylase 55. Magnesium 1.4. Urinalysis shows 2+ leukocyte esterase, positive nitrites, 2+ urine bacteria, and 25-50 urine WBCs. Lactic acid 1.8. IMAGING: Chest x-ray shows increased density at the right costophrenic angle suggesting an enlarging pleural effusion when compared to the previous exam. Aeration at the left lung base has improved since the previous exam. Mediastinal widening is again noted consistent with mediastinal adenopathy. A port is in satisfactory position. ASSESSMENT 1. Enlarging pleural effusion. 2. History of lung cancer, status post chemotherapy and radiation. 3. Hyponatremia. PLAN Admit the patient to inpatient with telemetry. Continue IV antibiotics with cefepime and Maxipime. Continue IV fluids with normal saline at 100 mL/hour. Will have Oncology evaluation and a Pulmonary consult for the thoracocentesis. Repeat the labs again in the morning, and further recommendations will follow. Dictated by Kendall Cat TD: 03/04/2017 17:42 JOB #: [id number] HISTORY AND PHYSICAL Page 1 of 1 X ISMAEL FRY MD X HISTORY AND PHYSICAL
--- NOTE | ~2017-03-04 | US140 ---
[facility] A Service of [facility] RADIOLOGY TEXT RESULTS PATIENT: CAROLA LYNCH LOCATION: [facility] : 44 UNIT #: [id number] AGE: [address]: Williams Klein MD SEX: F ORDER DR: [id number] [place] [id number] [facility]. [place], [place] [address] [id number] I MR#: [id number] Acc #: [id number] NAME: CAROLA LYNCH : 1945 SEX: F STUDY DATE/TIME: 03/07/2017 14:19 UNIT: [address] ROOM: [facility] STUDY DESCRIPTION: US UE Veins Unilat or Ltd Stdy Attending Physician: Williams Klein M.D. Ordering Physician: Petr Wild M.D. Primary Care Physician: No Primary Care Physician MEDICAL IMAGING REPORT This report is preliminary unless electronic signature is present EXAM Upper extremity ultrasound for DVT; 03/07/2017. INDICATIONS 71-year-old female with DVT in the left arm, swelling for 2 days. No recent surgery or history of clot. TECHNIQUE Grover-scale, color Doppler and spectral analysis of the left upper extremity performed. COMPARISON No comparisons. FINDINGS The examination is abnormal. There is thrombus within the internal jugular and subclavian vein on the left. Both vessels are difficult to compress, and there is incomplete color flow within the internal jugular vein. No significant flow in the subclavian vein. The remainder the left upper extremity demonstrates no DVT. IMPRESSION 1. Abnormal examination. The examination is positive for DVT in the left upper extremity. Findings were called to the nurse at the time of this dictation. STAT * RESULT Dictated by... Dereck Pena M.D. [facility] A Service [facility] RADIOLOGY TEXT RESULTS PATIENT: CAROLA LYNCH LOCATION: [facility] 325 : 44 UNIT #: [id number] AGE: [address]: Williams Klein MD SEX: F ORDER DR: THIS IS AN ELECTRONICALLY VERIFIED REPORT Dereck Pena M.D. at 03/07/2017 10:05 PM Kurt TD: 03/07/2017 15:05 JOB #: [id number] MEDICAL IMAGING REPORT Page 1 of 1 COPY
[2017-03-04] MEDS ORDERED: OXYCODONE HCL10 MG PO (08:11)
[2017-03-04] MEDS ORDERED: ATIVAN PO (08:11)
[2017-03-04 08:30] LABS: ARTERIAL BLD GAS O2 SATURATION 94.1 % (90.0-100.0); ARTERIAL BLOOD GAS CARBOXY HB 0.9 %sat (0.0-9.0); ARTERIAL BLOOD GAS HCO3 23.4 mmol/L; ARTERIAL BLOOD GAS MET HB 0.7 %sat (0.0-2.0); ARTERIAL BLOOD GAS PCO2 33.1 mmHg (35.0-45.0); ARTERIAL BLOOD GAS pH 7.457 (7.350-7.450)
[2017-03-04 08:31] LABS: ARTERIAL BLOOD GAS ART SITE RIGHT BRACHIAL; ARTERIAL BLOOD GAS DELIVERY NASAL CANNULA; ARTERIAL BLOOD GAS PO2 79.3 mmHg (80.0-100); ARTERIAL DRAW? YES
[2017-03-04 08:36] LABS: BASOPHIL% 0.2 % (0-2.5); EOSINOPHIL% 0.5 % (0.0-7.0); HEMOGLOBIN 11.5 gm/dL (12.0-16.0); LYMPHOCYTE# 0.5 X10e3 (1.0-3.5); LYMPHOCYTE% 7.7 % (17.0-45.0); MEAN CELL VOLUME 94.4 FL (83-96); MEAN CORPUSCULAR HEMOGLOBIN 31.1 PG (28-34); MEAN CORPUSCULAR HGB CONC 32.9 g/dL (30-36); MEAN PLATELET VOLUME 6.5 FL (6.5-11.5); MONOCYTE# 0.4 X10e3 (0-1.0); MONOCYTE% 6.9 % (3.0-12.0); NEUTROPHIL# 5.1 X10e3 (1.5-7.1); NEUTROPHIL% 84.7 % (40-75); PLATELET COUNT 217 X10e3 (140-420); RED CELL DISTRIBUTION WIDTH 14.8 % (11.0-15.5)
[2017-03-04 08:44] LABS: DIFF IND NO
[2017-03-04 08:48] LABS: POC - CKMB <1.0 ng/mL (0.0-7.9); POC - TROPONIN <0.05 ng/mL (<=0.05)
[2017-03-04 08:53] LABS: INR 1.1; PARTIAL THROMBOPLASTIN TIME 29.9 SECONDS (23.5-31.3); PROTHROMBIN TIME (PATIENT) 11.7 SECONDS (10.0-11.7)
[2017-03-04 08:58] LABS: ALBUMIN SERUM 3.2 g/dL (3.5-5.0); BILIRUBIN, DIRECT 0.2 mg/dL (0.0-0.2); BILIRUBIN,INDIRECT 0.5 mg/dL (0.0-0.9); BILIRUBIN,TOTAL 0.7 mg/dL (0.2-2.0); CALCIUM SERUM 8.6 mg/dL (8.4-10.2); CREATININE SERUM 0.6 mg/dL (0.6-1.4); GLOM FILT RATE Estimated 91.1 mL/min (>60); MAGNESIUM 1.4 mg/dL (1.6-3.0); PHOSPHOROUS 3.7 mg/dL (2.5-4.6); POTASSIUM 3.2 mmol/L (3.5-5.1)
[2017-03-04 09:37] LABS: URINE APPEARANCE CLEAR; URINE BILIRUBIN NEG (NEG); URINE BLOOD TRACE (NEG); URINE COLOR DK YELLOW; URINE GLUCOSE NEG (NEG); URINE KETONE 1+ (NEG); URINE LEUKOCYTE ESTERASE 2+ (NEG); URINE NITRATE POS (NEG); URINE PROTEIN TRACE (NEG); URINE SPECIFIC GRAVITY 1.027 (1.003-1.035)
[2017-03-04 09:40] LABS: CULTURE INDICATED? YES; URINE BACTERIA AUWI 2+ (NEGATIVE); URINE SQUAMOUS EPITHELIAL CELL NONE SEEN /[HPF]; UWBCS1 AUWI 25-50 (0-5)
[2017-03-04 09:58] LABS: URINE MUCUS PRESENT; URINE SOURCE CATH
[2017-03-04 11:48] LABS: POC - CKMB <1.0 ng/mL (0.0-7.9); POC - TROPONIN <0.05 ng/mL (<=0.05)
[2017-03-05 14:02] LABS: BUN/CREATININE RATIO 18.33; CALCIUM SERUM 8.2 mg/dL (8.4-10.2); CREATININE SERUM 0.6 mg/dL (0.6-1.4); GLOM FILT RATE Estimated 91.1 mL/min (>60); MAGNESIUM 1.6 mg/dL (1.6-3.0); POTASSIUM 3.7 mmol/L (3.5-5.1)
[2017-03-07 06:19] LABS: HEMATOCRIT 30.6 % (35.0-45.0); HEMOGLOBIN 10.2 gm/dL (12.0-16.0); MEAN CELL VOLUME 94.3 FL (83-96); MEAN CORPUSCULAR HEMOGLOBIN 31.5 PG (28-34); MEAN CORPUSCULAR HGB CONC 33.4 g/dL (30-36); MEAN PLATELET VOLUME 6.4 FL (6.5-11.5); RED BLOOD COUNT 3.25 X10e (3.90-5.30); RED CELL DISTRIBUTION WIDTH 15.1 % (11.0-15.5); WHITE BLOOD COUNT 5.5 X10e3 (4.0-10.5)
[2017-03-07 07:32] LABS: CALCIUM SERUM 8.5 mg/dL (8.4-10.2); CREATININE SERUM 0.4 mg/dL (0.6-1.4); GLOM FILT RATE Estimated 104.1 mL/min (>60); MAGNESIUM 1.7 mg/dL (1.6-3.0); POTASSIUM 3.9 mmol/L (3.5-5.1)
[2017-03-08 06:01] LABS: HEMATOCRIT 31.7 % (35.0-45.0); HEMOGLOBIN 10.7 gm/dL (12.0-16.0); MEAN CORPUSCULAR HEMOGLOBIN 31.8 PG (28-34); MEAN CORPUSCULAR HGB CONC 33.8 g/dL (30-36); MEAN PLATELET VOLUME 6.4 FL (6.5-11.5); RED BLOOD COUNT 3.37 X10e (3.90-5.30); RED CELL DISTRIBUTION WIDTH 14.8 % (11.0-15.5); WHITE BLOOD COUNT 5.8 X10e3 (4.0-10.5)
[2017-03-08 06:44] LABS: CALCIUM SERUM 8.8 mg/dL (8.4-10.2); CREATININE SERUM 0.5 mg/dL (0.6-1.4); GLOM FILT RATE Estimated 96.7 mL/min (>60)
[2017-03-09] MEDS ORDERED: COMBIVENT MININEB INH (11:43)
[2017-03-09] MEDS ORDERED: LOVENOX40 MG/0.4 SUBQ (11:49)
[2017-03-09] MEDS ORDERED: HUMIBID-LA600 MG PO (11:50)
[2017-03-09] MEDS ORDERED: LEVAQUIN750 M1 PO (11:51)
[2017-03-09] MEDS ORDERED: PREDNISONE (11:52)
[2017-04-23] MEDS ORDERED: IPRATR-ALBUTEROL3 ML NEB (10:25)
[2017-04-23] MEDS ORDERED: DEXAMETHASONE4 MG PO (10:25)
[2017-04-23] MEDS ORDERED: ATIVAN PO (10:25)
[2017-04-23] MEDS ORDERED: GUAIFENESIN LA600 M1 PO (10:27)
[2017-04-23] MEDS ORDERED: DURAGESIC1 EAC1 TOP (10:27)
[2017-04-23] MEDS ORDERED: NYSTATIN100000 UN1 PO (10:28)
[2017-04-23] MEDS ORDERED: OXYCONTIN PO (10:28)
[2017-04-23] MEDS ORDERED: SENNA8.6 M1 PO (10:28)
[2017-04-23] MEDS ORDERED: TYL325 PO (10:29)
[2017-04-23] MEDS ORDERED: GAS-X125 MG PO (10:29)
[2017-04-23] MEDS ORDERED: PATIENT'S PHARMACY (10:30)
== END 2017-03-09 16:34 | disposition home or self-care (01) | DRG 189 ==
LOC: CED 08:00 → C3A PCU 11:04 → CEDOF 11:04 → CED 11:35 → CEDOF 11:35 → C3A PCU 12:37 → CEDOF 03-05 11:04 → C3A PCU 03-05 11:04 → CED 03-05 11:04 → C3A PCU 03-08 08:22
PROVIDERS: Emergency Medicine; Internal Medicine; Internal Medicine Pulmonary Disease
PROC: 0BC78ZZ Extirpation of Matter from Left Main Bronchus, Via Natural or Artificial Opening Endoscopic (ICD-10-PCS; 2017-03-04)
PROC: 0W993ZZ Drainage of Right Pleural Cavity, Percutaneous Approach (ICD-10-PCS; principal; 2017-03-05 09:44)
PROC: 0BB78ZX Excision of Left Main Bronchus, Via Natural or Artificial Opening Endoscopic, Diagnostic (ICD-10-PCS; 2017-03-05 09:44)
DX: J96.01 Acute respiratory failure with hypoxia (principal); E43 Unspecified severe protein-calorie malnutrition; J18.9 Pneumonia, unspecified organism; T17.590A Other foreign object in bronchus causing asphyxiation, initial encounter; I82.622 Acute embolism and thrombosis of deep veins of left upper extremity; C34.90 Malignant neoplasm of unspecified part of unspecified bronchus or lung; N39.0 Urinary tract infection, site not specified; J90 Pleural effusion, not elsewhere classified; E87.1 Hypo-osmolality and hyponatremia; J44.1 Chronic obstructive pulmonary disease with (acute) exacerbation; J44.0 Chronic obstructive pulmonary disease with (acute) lower respiratory infection; Z68.1 Body mass index [BMI] 19.9 or less, adult; B96.20 Unspecified Escherichia coli [E. coli] as the cause of diseases classified elsewhere; E87.6 Hypokalemia; E83.42 Hypomagnesemia; F41.9 Anxiety disorder, unspecified; I25.2 Old myocardial infarction; I25.10 Atherosclerotic heart disease of native coronary artery without angina pectoris; Z87.891 Personal history of nicotine dependence; Z98.51 Tubal ligation status
CPT/HCPCS: 36415; 36600; 51702; 71010; 80048; 80076; 81003; 82150; 82553; 82803; 82947; 83605; 83690; 83735; 84100; 84484; 85025; 85027; 85610; 85730; 87040; 87070; 87086; 87088; 87102; 87106; 87116; 87186; 87205; 87206; 88108; 88305; 88312; 89190; 93005; 93971; 94640; 94760; 96361; 96374; 97116; 97161; 97530; 97535; 99291; G8978-GP; G8979-GP; G8980-GP; G8987-GO; G8988-GO; J0171; J0456; J0692; J0696; J1642; J1650; J1815; J2060; J2270; J2543; J2920; J3260; J3370; J3475

== ENCOUNTER 2017-03-10 17:28 | Inpatient (IN) | payer MEDICARE, OTHER ==
[~2017-03-10] VITALS: Ht 157.5 cm; Wt 47.0 kg
--- NOTE | ~2017-03-10 | CR71 ---
[facility] A Service of [facility] & [facility] RADIOLOGY TEXT RESULTS PATIENT: CAROLA LYNCH LOCATION: [facility] 317-01 : 44 UNIT #: [id number] AGE: [address]: Candace Mittal MD SEX: F ORDER DR: [id number] [facility] [address] [place], [place] [address] [id number] I MR#: [id number] Acc #: [id number] NAME: CAROLA LYNCH : 1945 SEX: F STUDY DATE/TIME: 03/12/2017 11:05 UNIT: [address] ROOM: [facility] STUDY DESCRIPTION: CR Chest Single View Attending Physician: Candace Mittal M.D. Ordering Physician: Ed Doctor [id number] [facility] Primary Care Physician: Primary Care Physician No MEDICAL IMAGING REPORT This report is preliminary unless electronic signature is present EXAM Chest portable 03/12/2017 1105 hours HISTORY 71-year-old woman with pleural effusion, cough and congestion. One hour post thoracentesis today. History of lung carcinoma. COMPARISON 03/10/2017 chest x-ray and CT scan 03/11/2017. FINDINGS Portable upright chest demonstrates normal heart size. Aortic contours are normal. There is mild superior mediastinal widening unchanged. There is a right central venous port catheter with tip in SVC. The upper lungs are clear with clearing of interstitial change from chest film 03/10/2017. There is minimal blunting of both costophrenic sulci, decreased on the right. There is no pneumothorax. IMPRESSION 1. There is decrease in right pleural effusion with some blunting of the costophrenic sulcus remaining. There is no pneumothorax. 2. Interval clearing of bilateral interstitial changes since the film of 03/10/2017 likely resolving edema. Dictated by... Micki Blake M.D. THIS IS AN ELECTRONICALLY VERIFIED REPORT Micki Blake M.D. at 03/12/2017 1:44 PM EUGENE/pérez TD: 03/12/2017 12:59 [facility] A Service of [facility] & [facility] RADIOLOGY TEXT RESULTS PATIENT: CAROLA LYNCH LOCATION: [facility] 317-01 : 44 UNIT #: [id number] AGE: [address]: Candace Mittal MD SEX: F ORDER DR: JOB #: [id number] MEDICAL IMAGING REPORT Page 1 of 1 COPY
--- NOTE | ~2017-03-10 | HP ---
Unit #: [id number] #: [id number] Patient: CAROLA LYNCH [id number] [address] [address] [id number] I MR#: [id number] NAME: CAROLA LYNCH ROOM: 00235 Age: 71 Sex: F Admission Date: 03/10/2017 : 1945 Attending Physician: Karen Freeman M.D. Primary Care Physician: Primary Care Physician No HISTORY AND PHYSICAL CHIEF COMPLAINT Acute hypoxic respiratory failure with chest pain and shortness of breath HISTORY This 71-year-old female with progressive Stage IIIB non-small cell lung cancer, COPD, coronary artery disease, is admitted for increasing shortness of breath and chest pain. The patient was recently admitted to this facility 03/04 through 03/09/2017 for respiratory failure thought to be secondary to pneumonia. During her hospitalization, a bronchoscopy was performed showing thick yellow secretions along with a growth along the left long bronchi. An attempt was made to perform a thoracentesis of a right pleural effusion, but this was unsuccessful due to volume. She was seen in consultation both by oncology as well as pulmonary. At the time of discharge, was placed on Levaquin and felt better. Her sputum showed normal respiratory kelsey, was negative for PCP. She was also placed on high-dose Lovenox for a left arm DVT. She did well last evening after her discharge to home yesterday. However, today she had worsening congestion with cough, shortness of breath and anterior chest pain with coughing. She presented to this emergency department tonight afebrile, but with a blood pressure of 79/51, which did respond to 2 liters of fluid. Her chest x-ray shows increasing opacities bilaterally. She was therefore given Zosyn, Vancomycin and tobramycin as her BNP is normal. Also treated with Zofran and dilaudid for her pain with improvement of her pain. PAST MEDICAL HISTORY 1. Stage IIIB non-small cell lung cancer, which is progressive despite chemotherapy and radiation. She is followed by Dr. Alok Crandall. 2. COPD. 3. Recent admission for pneumonia. 4. Coronary artery disease, details are unknown. 5. Multiple skin grafts. 6. BTL. ALLERGIES No known drug allergies. MEDICATIONS AT TIME OF DISCHARGE Include: 1. DuoNeb 2. Prednisone taper 3. Lovenox 40 mg subcutaneously q.12 hours Unit #: [id number] #: [id number] Patient: CAROLA LYNCH 4. Ativan 1 mg p.o. b.i.d. 5. Guaifenesin 600 mg twice daily 6. Oxycodone 10 mg q.4 hours p.r.n. 7. Levaquin 750 mg every seven days. FAMILY HISTORY Reviewed and was negative. SOCIAL HISTORY The patient is originally from [place]. She is living with her son. She stopped smoking at the time of her diagnosis of lung cancer. She does not drink alcohol. REVIEW OF SYSTEMS Difficult to obtain due to language barrier. History was obtained from her records and son was fluent in Setswana and did translate. PHYSICAL EXAMINATION GENERAL APPEARANCE: Thin, 71-year-old female who looks to be uncomfortable. VITAL SIGNS: Temperature 98.2, pulse 114, respirations 32, initial blood pressure 79/51, current blood pressure is 88/59 after 2 liters of fluid. Her O2 saturation was 90% on room air, currently is 98% on 3 liters of oxygen. HEENT: Eyes PERRLA. Extraocular muscles are intact. Pharynx is benign. NECK: Supple. There is some skin grafts noted over the upper chest and neck region without definite adenopathy. CHEST: Reveals rhonchi throughout. She sounds quite congested. CARDIAC: Normal S1 and S2 without definite murmur. There is a port in the right upper chest. ABDOMEN: Bowel sounds are present. No hepatosplenomegaly, tenderness or masses. EXTREMITIES: Without pedal edema. The patient does have clubbing of her fingernails. NEUROLOGIC EXAM: The patient is awake, alert, and oriented. Cranial nerves are intact. She has equal strength throughout but is weak on exam. DIAGNOSTIC STUDIES LABORATORY: Admission labs - hematocrit is 32.4, which is improved. Normal white count and platelet count. SMA-12: Glucose 177, sodium 129, chloride 95, calcium 8.2, magnesium 1.3, albumin 2.8. Lactic acid, BNP normal. Cardiac markers are negative. CARDIOLOGY: EKG: Sinus tachycardia, rate 102. IMAGING: Chest x-ray shows stable cardiomegaly with increasing opacities bilaterally and slight increase in the left pleural effusion. There is a right pleural effusion, which is present. ASSESSMENT 1. Acute hypoxic respiratory failure with worsening cough and chest congestion likely secondary to hospital acquired pneumonia. Also need to be concerned about aspiration given apparently there is some difficulty swallowing possibly due to extrinsic compression possibly Unit #: [id number] #: [id number] Patient: CAROLA LYNCH on the esophagus per family's report. The patient presents with increasing chest pain related to cough and worsening shortness of breath with worsening chest x-ray findings. 2. Non-small cell lung cancer with progressive disease despite chemotherapy and radiation. 3. Chronic obstructive pulmonary disease. 4. Coronary artery disease, details are unknown. 5. Swallowing difficulty. 6. Hypomagnesemia and likely hypovolemic hyponatremia. 7. Left arm deep venous thrombosis currently on therapeutic doses of Lovenox. 8. Recent diagnosis of Escherichia coli urinary tract infection being treated with Levaquin. PLANS 1. Check swallowing evaluation by speech therapy in the morning to rule out aspiration. 2. Vancomycin, Zosyn, Levaquin. Patient did receive one dose of tobramycin in the emergency room. 3. Increase steroids, bronchodilators and mucolytics. 4. Pain control. 5. Oncology and pulmonary consultation. 6. Gastritis prophylaxis and continue high dose Lovenox. 7. IV fluids and supportive treatment. 8. Further workup depending on above. 9. TSH. 10. Long-term prognosis is poor given progressive lung cancer. Dictated by Karen Freeman M.D. AML/to TD: 03/10/2017 21:31 JOB #: [id number] HISTORY AND PHYSICAL Page 1 of 1 X Karen Freeman MD HISTORY AND PHYSICAL
--- NOTE | ~2017-03-10 | XA203 ---
[facility] A Service of [facility] RADIOLOGY TEXT RESULTS PATIENT: CAROLA LYNCH LOCATION: [facility] 317- : 44 UNIT #: [id number] AGE: [address]: Candace Mittal MD SEX: F ORDER DR: [id number] [place] [id number] [facility]. [place], [place] [address] [id number] I MR#: [id number] Acc #: [id number] NAME: CAROLA LYNCH : 1945 SEX: F STUDY DATE/TIME: 03/12/2017 10:52 UNIT: [facility] ROOM: [facility] STUDY DESCRIPTION: XA Thoracentesis Attending Physician: Candace Mittal M.D. Ordering Physician: Oz Fry M.D. MEDICAL IMAGING REPORT This report is preliminary unless electronic signature is present EXAM Ultrasound-guided right thoracentesis. INDICATIONS Right effusion. The risks, benefits, and alternatives of the procedure were discussed with the patient and informed consent was obtained. In the procedure room, a time out was performed confirming correct patient and procedure. All elements of maximum sterile-barrier technique utilized according to guidelines appropriate for the procedure. TECHNIQUE FINDINGS Ultrasound of the right posterior hemithorax demonstrated a small right pleural effusion. The overlying skin was prepped and draped in usual sterile fashion. 1% lidocaine utilized to anesthetize the skin and underlying subcutaneous tissues. Next under ultrasound guidance, a 5-Latvian Yueh catheter was inserted into the pleural space on the right and 300 mL of fluid was removed and samples was sent to the lab. Needle was removed and a sterile dressing was applied. No immediate complications. IMPRESSION Technically successful ultrasound-guided right thoracentesis. Dictated by... Juan Deal M.D. THIS IS AN ELECTRONICALLY VERIFIED REPORT Juan Deal M.D. at 03/15/2017 12:15 PM ARS/pcl [facility] A Service of [facility] RADIOLOGY TEXT RESULTS PATIENT: CAROLA LYNCH LOCATION: [facility] 317-01 : 44 UNIT #: [id number] AGE: [address]: Candace Mittal MD SEX: F ORDER DR: TD: 03/12/2017 22:28 JOB #: [id number] MEDICAL IMAGING REPORT Page 1 of 1 COPY
--- NOTE | ~2017-03-10 | EKG ---
PATIENT: CAROLA LYNCH UNIT #: [id number] Ventricular Rate: 102 BPM Atrial Rate: 102 BPM P-R Interval: 144 ms QRS Duration: 80 ms Q-T Interval: 352 ms QTC Calculation(Bezet): 458 ms P [place]: 66 degrees Calculated R [place]: 63 degrees Calculated T [place]: 56 degrees Diagnosis Line: Sinus tachycardia Diagnosis Line: Otherwise normal ECG Diagnosis Line: Diagnosis Line: Confirmed by MICHAEL JOVEL MD ([id number]) on 03/13/2017 Diagnosis Line: 8:07:52 AM INTERPRETING MD: BECKA JORDAN
--- NOTE | ~2017-03-10 | CO ---
Unit #: [id number] #: [id number] Patient: CAROLA LYNCH [id number] [address] [address] [id number] I MR#: [id number] NAME: CAROLA LYNCH ROOM: [facility] Age: 71 Sex: F Admission Date: 03/10/2017 : 1945 Attending Physician: Candace Mittal M.D. Primary Care Physician: Dori Primary Care Physician Consultation Date: 03/11/2017 CONSULTATION REPORT REASON FOR CONSULTATION Respiratory failure. HISTORY OF PRESENT ILLNESS This is a well-known 71-year-old female with a past medical history significant for progressive stage 3 yih-jmsav-xoin lung cancer, chronic obstructive pulmonary disease and coronary artery disease. The patient was admitted for worsening shortness of breath and chest discomfort. The patient was just discharged from this hospital two days ago, after an admission for acute exacerbation of chronic obstructive pulmonary disease and pneumonia. The patient was discharged home then after a bronchoscopy that had negative cultures on Levaquin and Lovenox for DVT. In the emergency room the patient was noted to have a low blood pressure that responded to IV fluids and her chest x-ray showed bilateral interstitial infiltrates, so she was started on vancomycin, Zosyn and Levaquin. The patient denied any fever, chills or night sweats. No nausea, vomiting or diarrhea. PAST MEDICAL HISTORY 1. Stage 3B arr-awxnd-uqao lung cancer. 2. Chronic obstructive pulmonary disease. 3. Coronary artery disease. 4. Multiple skin grafts. SOCIAL HISTORY The patient is From [place]. She lives with her son. She stopped smoking at the time of lung cancer. No history of alcohol or drug abuse. FAMILY HISTORY Negative. ALLERGIES No known drug allergies. HOME MEDICATIONS 1. Duo-Neb. 2. Prednisone taper. 3. Lovenox. 4. Ativan. 5. Guaifenesin. 6. Oxycodone. 7. Levaquin. Unit #: [id number] #: [id number] Patient: CAROLA LYNCH REVIEW OF SYSTEMS Twelve point review of systems was obtained and negative except for what was mentioned in the history of present illness. PHYSICAL EXAMINATION GENERAL: The patient is in no acute distress at this point. VITALS: Blood pressure is 123/62, respiratory rate 18, O2 saturations 98% on 3 liters nasal cannula. HEENT: Atraumatic, normocephalic. Extraocular muscles intact. NECK: Supple. No jugular venous distension. No lymphadenopathy. CHEST: Decreased breath sounds bilaterally with fine rhonchi. HEART: S1 and S2. No murmur, gallop or rub. ABDOMEN: Soft and nontender. Bowel sounds positive. No hepatosplenomegaly. EXTREMITIES: No edema or cyanosis. SKIN: Multiple skin grafts. NEUROLOGIC: Awake, alert and oriented times three. No focal motor/sensory deficits. DIAGNOSTIC STUDIES IMAGING: Chest x-ray is consistent with bilateral interstitial infiltrates. LABORATORY: Creatinine 0.5, potassium 3.4, calcium 8.1, white blood cell count 6.6, hemoglobin 9.7, platelets 164. ASSESSMENT 1. Acute hypoxic respiratory failure. 2. Pulmonary edema. 3. Recent pneumonia. 4. Nmc-vfwzs-cayj lung cancer. 5. Chronic obstructive pulmonary disease. 6. Coronary artery disease. 7. Left arm DVT. PLAN 1. Her chest x-ray was reviewed by me and I doubt that she is having a new pneumonia. It is more consistent with pulmonary edema. 2. I will deescalate antibiotics to Levaquin to finish her old course. 3. Will try gentle diuresing, given recent hypotension. 4. Continue Lovenox treatment dose. 5. Duo-Neb and IV steroids. 6. Will follow up CT of the chest that was ordered by oncology. I would like to thank you for allowing me to be part of this patient's care. Dictated by... Kendall Stallworth TD: 03/12/2017 11:47 JOB #: [id number] Unit #: [id number] #: [id number] Patient: ANJANA CLANCYQUEZCAROLA CONSULTATION REPORT Page 1 of 1 X DONI MUSE MD CONSULTATION REPORT
--- NOTE | ~2017-03-10 | CR72 ---
[facility] A Service of [facility] RADIOLOGY TEXT RESULTS PATIENT: CAROLA LYNCH LOCATION: [facility] 317-01 : 44 UNIT #: [id number] AGE: [address]: Candace Mittal MD SEX: F ORDER DR: [id number] [facility] [address] [facility]. [place], [place] [address] [id number] E MR#: [id number] Acc #: [id number] NAME: CAROLA LYNCH : 1945 SEX: F STUDY DATE/TIME: 03/10/2017 18:22 UNIT: [facility] ROOM: STUDY DESCRIPTION: CR Chest Single View Portable Attending Physician: Ofelia Cordero M.D. Ordering Physician: Ofelia Cordero M.D. Primary Care Physician: Primary Care Physician No MEDICAL IMAGING REPORT This report is preliminary unless electronic signature is present EXAM Portable chest x-ray HISTORY Short of air began 1 month ago, cough, weakness. Prior history of lung cancer. COMPARISON 03/04/2017 FINDINGS Right-sided chest port unchanged. Stable cardiac enlargement. Lungs moderately well inflated. Underlying pulmonary vascular congestion. Significantly increased interstitial densities extending from the central lung zones toward the periphery, bilaterally and symmetrically. Patchy alveolar densities bilateral lung bases. Increased central peribronchial markings. Slight increase in previously seen small left pleural effusion now ummhh-mj-ampswysy in volume. Overall appearance suggests zsothhza-dt-edtafc pulmonary edema with interstitial, airspace and right pleural space components. No pneumothorax. Followup to resolution recommended. Dictated by... Bear Blount M.D. THIS IS AN ELECTRONICALLY VERIFIED REPORT Bear Blount M.D. at 03/11/2017 1:21 PM JESE/cesar TD: 03/10/2017 20:03 JOB #: [id number] [facility] A Service of [facility] & [facility] RADIOLOGY TEXT RESULTS PATIENT: CAROLA LYNCH LOCATION: [facility] 317-01 : 44 UNIT #: [id number] AGE: [address]: Candace Mittal MD SEX: F ORDER DR: MEDICAL IMAGING REPORT Page 1 of 1 COPY
--- NOTE | ~2017-03-10 | DS ---
Unit #: [id number] #: [id number] Patient: CAROLA LYNCH [id number] [address] [address] [id number] I MR#: [id number] NAME: CAROLA LYNCH ROOM: 317 Age: 71 Sex: F Admission Date: 03/10/2017 : 1945 Discharge Date: 03/12/2017 Attending Physician: Candace Mittal M.D. Primary Care Physician: No Primary Care Physician DISCHARGE SUMMARY PRINCIPAL DIAGNOSES 1. Acute on chronic hypoxic respiratory failure secondary to number 2. 2. Non-small cell lung cancer, stage IIIB, with progressive lymphadenopathy and new metastases to the manubrium. 3. Acute exacerbation of chronic obstructive pulmonary disease. 4. Small right pleural effusion status post thoracentesis, which was mildly exudative. 5. Hypomagnesemia. 6. Hypokalemia. 7. Normocytic anemia. 8. Recent pneumonia, for which the patient has completed treatment. 9. Bibasilar atelectasis. 10. Coronary artery disease. 11. Severe protein malnutrition. 12. Underweight. 13. Anxiety. 14. Recent left arm deep vein thrombosis. CONSULTANTS 1. Dr. Fry, pulmonology. 2. Dr. Renner, oncology. PROCEDURES Thoracentesis on March 12, 2017, fluid of which appears mildly exudative, but it is borderline. DIAGNOSTIC STUDIES IMAGING: CT of the chest with contrast on March 11, 2017 with new small bilateral pleural effusions. There is a new destructive lesion in the manubrium measuring 4.5 cm. Increased size of low density adenopathy in the supraclavicular fossa bilaterally and the upper mediastinum. Xqug-hb-spywtmxm adenopathy in the remainder of the mediastinum, which is stable. Extensive atelectasis in inferior right lower lobe and posterior left lower lobe. CLINICAL HISTORY AND HOSPITAL COURSE Ms. Hardy Nagy is a really nice 71-year-old female, Czech speaking only, who presented back to the emergency department with increasing shortness of breath. The patient was discharged from this facility on March 09 after having acute respiratory failure secondary to pneumonia and COPD exacerbation. The patient was home only approximately 24 hours before presenting for shortness of breath. She was mildly hypotensive in the emergency department. In the ER this time the patient was again found to be hypoxic, and there were concerns about underlying Unit #: [id number] #: [id number] Patient: CAROLA LYNCH pneumonia, and she was subsequently admitted. The patient was placed back on broad-spectrum antibiotics for healthcare-associated pneumonia, and Dr. Fry and Dr. Marks were consulted. Her chest x-ray was most consistent with pleural effusion, and thoracentesis was done with removal of 300 mL of fluid. Gram stain is currently pending, but fluid reveals a mildly elevated jysmnqw-mp-puiru protein level, indicating a mild exudate. However, CT scan of the chest revealed progressive lung cancer. This was discussed by Dr. Marks with the patient and her son, and both would like to undergo Hospice care at this time. Thus, I am awaiting Hospice evaluation, but I anticipate she can be discharged home with comfort medications after seen by Hospice. DISCHARGE CONDITION Stable. DISCHARGE STATUS Discharge home with Hospice for end-of-life care. DISCHARGE MEDICATIONS 1. Combivent Mini-Neb q.6 hours p.r.n. shortness of breath. 2. Guaifenesin 600 mg p.o. b.i.d. 3. Oxycodone 10 mg p.o. q.4 hours p.r.n. pain. 4. Roxanol 20 mg per mL; patient can take 0.5 to 1 mL q.6 hours p.r.n. shortness of breath. 5. Ativan intensol 2 mg per mL, 0.5 mL q.4 hours p.r.n. shortness of breath. 6. The patient will be discharged with oxygen for comfort only. DISCHARGE INSTRUCTIONS Patient instructed to follow a regular diet. She can increase her activity as tolerated. FOLLOWUP Followup care per [facility]. NOTE: Time spent on discharge today 33 minutes. Dictated by... Candace Mittal M.D. RICARDO/brian TD: 03/15/2017 09:37 JOB #: [id number] DISCHARGE SUMMARY Page 1 of 1 X Candace Mittal MD DISCHARGE SUMMARY
--- NOTE | ~2017-03-10 | CT55 ---
[facility] A Service of [facility] & [facility] RADIOLOGY TEXT RESULTS PATIENT: CAROLA LYNCH LOCATION: [facility] 317-01 : 44 UNIT #: [id number] AGE: [address]: Candace Mittal MD SEX: F ORDER DR: [id number] [facility] [address] [facility] [place], [place] [address] [id number] I MR#: [id number] Acc #: [id number] NAME: CAROLA LYNCH : 1945 SEX: F STUDY DATE/TIME: 03/11/2017 17:31 UNIT: [address] ROOM: 317 STUDY DESCRIPTION: CT Chest W Con Attending Physician: Candace Mittal M.D. Ordering Physician: Mckay Marks M.D. Primary Care Physician: No Primary Care Physician MEDICAL IMAGING REPORT This report is preliminary unless electronic signature is present EXAM CT chest with IV contrast. HISTORY Shortness of air and cough for 2 days. Lung cancer. Currently on chemotherapy and radiation therapy. Diagnosis of lung cancer 3 months ago. Enlarging pleural effusion. TECHNIQUE This CT exam was performed with one or more of the following radiation dose reduction techniques: automatic exposure control, adjustment of mA and/or kV according to patient size, and iterative reconstruction. FINDINGS CT chest with IV contrast is compared to 12/19/2016 CT. There are new small bilateral pleural effusions, and there is new extensive atelectasis in the inferior right lower lobe and new moderate atelectasis in the posterior left lower lobe. New destructive lesion in the manubrium measuring 2 cm x 4.5 cm x 4.2 cm, concerning for metastatic disease. Increased size of low density lymph nodes in the supraclavicular fossa bilaterally measuring 2.4 cm x 3.3 cm on the right and 2.9 cm in short axis dimension on the left. Increased size of low density lymph node anterior to the upper trachea measuring 2.0 cm. Diffuse low density, soft tissue in the upper mediastinum is also new and could be confluent adenopathy or postradiation inflammation. No significant change in inferior pretracheal adenopathy, left mid to lower mediastinal adenopathy, and subcarinal adenopathy. New mild subsegmental atelectasis in the anterior posterior left upper lobe. Itcv-uf-ygwrfnbd emphysema primarily in the upper lobes. IMPRESSION 1. New small bilateral pleural effusions. [facility] A Service of [facility] & [facility] RADIOLOGY TEXT RESULTS PATIENT: CAROLA LYNCH LOCATION: [facility] 317-01 : 44 UNIT #: [id number] AGE: [address]: Candace Mittal MD SEX: F ORDER DR: 2. New destructive lesion in the manubrium is concerning for metastatic disease. This measures 4.5 cm in maximal dimension. 3. Increased size of low-density adenopathy in the supraclavicular fossa bilaterally and in the upper mediastinum is concerning for progressive metastatic disease. Stable zjcr-hg-sypgkond adenopathy in the remainder of the mediastinum. 4. Extensive atelectasis in the inferior right lower lobe and mild atelectasis in the posterior left lower lobe is new since the prior CT. Dictated by... Carlitos Arrieta M.D. THIS IS AN ELECTRONICALLY VERIFIED REPORT Carlitos Arrieta M.D. at 03/12/2017 10:08 PM Nya TD: 03/11/2017 22:48 JOB #: [id number] MEDICAL IMAGING REPORT Page 1 of 1 COPY
[~2017-03-10 17:28] MED LIST changes: +ATIVAN PO; +COMBIVENT MININEB INH; +HUMIBID-LA600 MG PO; +LEVAQUIN750 M1 PO; +LOVENOX40 MG/0.4 SUBQ; +OXYCODONE HCL10 MG PO; +PREDNISONE
[2017-03-10 18:04] LABS: BASOPHIL% 0.3 % (0-2.5); EOSINOPHIL% 0.1 % (0.0-7.0); HEMATOCRIT 32.4 % (35.0-45.0); LYMPHOCYTE# 0.4 X10e3 (1.0-3.5); LYMPHOCYTE% 8.5 % (17.0-45.0); MEAN CELL VOLUME 94.2 FL (83-96); MEAN CORPUSCULAR HEMOGLOBIN 31.9 PG (28-34); MEAN CORPUSCULAR HGB CONC 33.9 g/dL (30-36); MEAN PLATELET VOLUME 6.5 FL (6.5-11.5); MONOCYTE# 0.2 X10e3 (0-1.0); NEUTROPHIL# 4.4 X10e3 (1.5-7.1); NEUTROPHIL% 87.1 % (40-75); PLATELET COUNT 172 X10e3 (140-420); RED BLOOD COUNT 3.44 X10e (3.90-5.30); WHITE BLOOD COUNT 5.1 X10e3 (4.0-10.5)
[2017-03-10 18:08] LABS: DIFF IND NO
[2017-03-10 18:17] LABS: POC - CKMB <1.0 ng/mL (0.0-7.9); POC - TROPONIN <0.05 ng/mL (<=0.05)
[2017-03-10 18:19] LABS: INR 1.1; PARTIAL THROMBOPLASTIN TIME 29.2 SECONDS (23.5-31.3); PROTHROMBIN TIME (PATIENT) 11.7 SECONDS (10.0-11.7)
[2017-03-10 18:30] LABS: ALBUMIN SERUM 2.8 g/dL (3.5-5.0); BILIRUBIN, DIRECT 0.1 mg/dL (0.0-0.2); BILIRUBIN,INDIRECT 0.4 mg/dL (0.0-0.9); BILIRUBIN,TOTAL 0.5 mg/dL (0.2-2.0); CALCIUM SERUM 8.2 mg/dL (8.4-10.2); CREATININE SERUM 0.5 mg/dL (0.6-1.4); GLOM FILT RATE Estimated 96.7 mL/min (>60); MAGNESIUM 1.3 mg/dL (1.6-3.0); POTASSIUM 3.6 mmol/L (3.5-5.1); PROTEIN TOTAL SERUM 6.1 g/dL (6.0-8.3)
[2017-03-10 19:56] LABS: POC - CKMB <1.0 ng/mL (0.0-7.9); POC - TROPONIN <0.05 ng/mL (<=0.05)
[2017-03-11 05:20] LABS: HEMATOCRIT 29.4 % (35.0-45.0); HEMOGLOBIN 9.6 gm/dL (12.0-16.0); LYMPHOCYTE# 0.2 X10e3 (1.0-3.5); LYMPHOCYTE% 5.6 % (17.0-45.0); MEAN CELL VOLUME 95.4 FL (83-96); MEAN CORPUSCULAR HEMOGLOBIN 31.1 PG (28-34); MEAN CORPUSCULAR HGB CONC 32.6 g/dL (30-36); MEAN PLATELET VOLUME 6.8 FL (6.5-11.5); MONOCYTE# 0.1 X10e3 (0-1.0); MONOCYTE% 1.8 % (3.0-12.0); NEUTROPHIL# 3.6 X10e3 (1.5-7.1); NEUTROPHIL% 92.6 % (40-75); PLATELET COUNT 147 X10e3 (140-420); RED BLOOD COUNT 3.09 X10e (3.90-5.30); RED CELL DISTRIBUTION WIDTH 15.7 % (11.0-15.5); WHITE BLOOD COUNT 3.9 X10e3 (4.0-10.5)
[2017-03-11 05:51] LABS: CALCIUM SERUM 7.7 mg/dL (8.4-10.2); CREATININE SERUM 0.5 mg/dL (0.6-1.4); GLOM FILT RATE Estimated 96.7 mL/min (>60); POTASSIUM 3.9 mmol/L (3.5-5.1)
[2017-03-11 06:03] LABS: DIFF IND NO
[2017-03-11 14:10] LABS: FREE T3 2.4 pg/mL (2.5-3.9)
[2017-03-11 14:11] LABS: FREE THYROXIN (T4) 1.08 ng/dL (0.58-1.64)
[2017-03-12 05:34] LABS: HEMATOCRIT 29.4 % (35.0-45.0); HEMOGLOBIN 9.7 gm/dL (12.0-16.0); MEAN CELL VOLUME 93.6 FL (83-96); MEAN CORPUSCULAR HGB CONC 33.1 g/dL (30-36); MEAN PLATELET VOLUME 6.7 FL (6.5-11.5); RED BLOOD COUNT 3.14 X10e (3.90-5.30); RED CELL DISTRIBUTION WIDTH 15.8 % (11.0-15.5)
[2017-03-12 05:41] LABS: WHITE BLOOD COUNT 6.6 X10e3 (4.0-10.5)
[2017-03-12 06:39] LABS: CALCIUM SERUM 8.1 mg/dL (8.4-10.2); CREATININE SERUM 0.5 mg/dL (0.6-1.4); GLOM FILT RATE Estimated 96.7 mL/min (>60); MAGNESIUM 1.5 mg/dL (1.6-3.0); POTASSIUM 3.4 mmol/L (3.5-5.1)
[2017-03-12 12:10] LABS: PROTEIN, BODY FLUID 3.5 gm/dL
[2017-03-12] MEDS ORDERED: ROXANOL W/DR20 MG/ML PO (17:52)
[2017-04-23] MEDS ORDERED: DEXAMETHASONE4 MG PO (10:25)
[2017-04-23] MEDS ORDERED: ATIVAN PO (10:25)
[2017-04-23] MEDS ORDERED: IPRATR-ALBUTEROL3 ML NEB (10:25)
[2017-04-23] MEDS ORDERED: DURAGESIC1 EAC1 TOP (10:27)
[2017-04-23] MEDS ORDERED: GUAIFENESIN LA600 M1 PO (10:27)
[2017-04-23] MEDS ORDERED: SENNA8.6 M1 PO (10:28)
[2017-04-23] MEDS ORDERED: OXYCONTIN PO (10:28)
[2017-04-23] MEDS ORDERED: NYSTATIN100000 UN1 PO (10:28)
[2017-04-23] MEDS ORDERED: TYL325 PO (10:29)
[2017-04-23] MEDS ORDERED: GAS-X125 MG PO (10:29)
[2017-04-23] MEDS ORDERED: PATIENT'S PHARMACY (10:30)
== END 2017-03-12 20:40 | DRG 189 ==
LOC: CED 17:28 → CEDOF 21:00 → C3A PCU 21:00 → CED 21:26 → CEDOF 21:26 → C3A PCU 23:21 → CEDOF 23:21 → C3A PCU 23:21
PROVIDERS: Emergency Medicine; Internal Medicine
PROC: 0W993ZZ Drainage of Right Pleural Cavity, Percutaneous Approach (ICD-10-PCS; principal; 2017-03-12)
DX: J96.21 Acute and chronic respiratory failure with hypoxia (principal); E43 Unspecified severe protein-calorie malnutrition; C79.51 Secondary malignant neoplasm of bone; C34.90 Malignant neoplasm of unspecified part of unspecified bronchus or lung; J90 Pleural effusion, not elsewhere classified; E83.42 Hypomagnesemia; E87.1 Hypo-osmolality and hyponatremia; I82.722 Chronic embolism and thrombosis of deep veins of left upper extremity; J44.1 Chronic obstructive pulmonary disease with (acute) exacerbation; Z68.1 Body mass index [BMI] 19.9 or less, adult; Z87.891 Personal history of nicotine dependence; E87.6 Hypokalemia; D64.9 Anemia, unspecified; F41.9 Anxiety disorder, unspecified; I25.10 Atherosclerotic heart disease of native coronary artery without angina pectoris; Z79.01 Long term (current) use of anticoagulants; Z87.01 Personal history of pneumonia (recurrent)
CPT/HCPCS: 36415; 71010; 71260; 80048; 80076; 82042; 82150; 82553; 82947; 83605; 83615; 83735; 83880; 84157; 84439; 84443; 84481; 84484; 85025; 85027; 85610; 85730; 87040; 87070; 87205; 88108; 88305; 92610; 93005; 94640; 94760; 96361; 96365; 96367; 96375; 99285; G8996-GN; G8997-GN; G8998-GN; J1170; J1642; J1650; J1940; J1956; J2405; J2543; J2920; J3260; J3370; J3475; Q9967

== ENCOUNTER 2017-04-15 21:12 | Inpatient (IN) | payer MEDICARE, OTHER ==
--- NOTE | ~2017-04-15 | CT16 ---
[facility] A Service of [facility] & [facility] RADIOLOGY TEXT RESULTS PATIENT: CAROLA LYNCH LOCATION: C2A : 44 UNIT #: [id number] AGE: [address]: Radha Eagle MD SEX: F ORDER DR: [id number] [facility] [address] [facility]. [place], [place] [address] [id number] I MR#: [id number] Acc #: [id number] NAME: CAROLA LYNCH : 1945 SEX: F STUDY DATE/TIME: 04/16/2017 0:09 UNIT: C2A ROOM: 203 STUDY DESCRIPTION: CT Angio Chest for PE Attending Physician: Beto Maldonado M.D. Ordering Physician: Scott Brantley M.D. Primary Care Physician: Primary Care Physician No MEDICAL IMAGING REPORT This report is preliminary unless electronic signature is present EXAM CTA chest PE protocol INDICATION Chest pain since this morning. Additional clinical history of known lung cancer. Patient was currently undergoing chemoradiation March 2017. PROCEDURE Contrast-enhanced CTA of the chest attention on opacification of the pulmonary arteries. Coronal 3-D MIP and sagittal reformatted images are submitted. This CT examination was performed with one or more of the following radiation dose reduction techniques: automatic exposure control, adjustment of mA and/or kV according to patient size, and iterative reconstruction. COMPARISON CT chest with contrast on 03/11/2017. FINDINGS No evidence for pulmonary embolus. No evidence for acute aortic injury. There is bilateral hilar and mediastinal adenopathy extending superiorly into the left supraclavicular region. Supraclavicular adenopathy on the left surrounds the left common carotid artery and measures up to 3.6 cm in thickness previously 2.9 cm. Adenopathy completely surrounds the origins of the great vessels and trachea. Overall this is similar to the prior. An index right hilar node measures 2.3 cm previously 2.1 cm. A left pericardial metastasis measures 1.7 cm previously 1.4 cm. Emphysema. Atelectasis in the left lower lobe. There is dense opacity with volume loss in the right lower lobe probably atelectasis as well. No pneumothorax. There are areas of low attenuation in the spleen nonspecific but not clearly seen on the prior. An index region measures STS. [facility] A Service of [facility] & [facility] RADIOLOGY TEXT RESULTS PATIENT: CAROLA LYNCH LOCATION: [facility] 203- : 44 UNIT #: [id number] AGE: [address]: Radha Eagle MD SEX: F ORDER DR: 1.6 cm. There is a 9 mm right adrenal nodule not seen on the prior keeping with a new metastasis. No acute findings in the upper abdomen. Redemonstration of a large lesion in the manubrium that is similar to the previous study. There is new involvement of the anterior T2 and probably T3 vertebral bodies. IMPRESSION 1. No evidence for pulmonary embolus. 2. Interval progression of metastatic disease throughout the chest and bone structures, as well as the right adrenal gland as detailed above. 3. Probable atelectasis in the right lower lobe and left lower lobe greater on the right. Dictated by... Ramsey Wallis M.D. THIS IS AN ELECTRONICALLY VERIFIED REPORT Ramsey Wallis M.D. at 04/20/2017 8:56 AM AJAY/pérez TD: 04/16/2017 10:23 JOB #: [id number] MEDICAL IMAGING REPORT Page 1 of 1 COPY
--- NOTE | ~2017-04-15 | HP ---
Unit #: [id number] #: [id number] Patient: CAROLA LYNCH [id number] [address] [place], [place] [address] [id number] I MR#: [id number] NAME: CAROLA LYNCH ROOM: 203 Age: 71 Sex: F Admission Date: 04/16/2017 : 1945 Attending Physician: Karen Freeman M.D. Primary Care Physician: No Primary Care Physician HISTORY AND PHYSICAL CHIEF COMPLAINT Acute on chronic pain from malignancy. HISTORY This 71-year-old female with stage 4 non-small cell lung cancer despite treatment, COPD, CAD, is admitted for increasing pain. The patient was last admitted 03/10/2017 to this facility and is receiving home hospice. Has chronic pain usually improved with oxycodone 20 mg q.4 hours. However, yesterday morning developed increasing chest pain with movement and inspiration despite her usual oxycodone. They called the hospice physician who told them to increase oxycodone to q.1 hour as needed but they brought the patient to this ER late last evening. In the ER, she was given a small dose of Dilaudid without improvement of her pain. Workup thus far is unrevealing except for progression of her known malignancy into bone and right adrenal gland. When I walked into the room she is moaning in pain. PAST MEDICAL HISTORY 1. Stage 4 non-small cell lung cancer. Despite chemotherapy and radiation has become progressive. 2. Chronic pain related to above. 3. COPD. 4. Previous admission for pneumonia and pleural effusion which was thought to be exudative. 5. CAD, details are unknown. 6. Multiple skin grafts. 7. BTL. ALLERGIES No known drug allergies. HOME MEDICATIONS 1. Duo-Nebs q.6 hours as needed. 2. Humibid LA 600 mg b.i.d. 3. Roxanol 20 mg q.6 hours as needed for shortness of breath. 4. Ativan 1 mg q.4 hours as needed. 5. Nystatin swish and swallow. 6. Senna tablets, 2 tablets b.i.d. 7. Dexamethasone 4 mg daily. 8. P.r.n. Tylenol. 9. Oxycodone 20 mg q.4 hours as needed. 10. Simethicone 125 mg q.6 hours as needed. Unit #: [id number] #: [id number] Patient: CAROLA LYNCH FAMILY HISTORY Reviewed and negative. SOCIAL HISTORY The patient is living with her son. She is originally from [place]. She stopped smoking over the past year. She does not drink alcohol. REVIEW OF SYSTEMS Impossible to obtain due to language barrier. History obtained from the son by bedside who is fluent in Syriac and old records. PHYSICAL EXAMINATION GENERAL: Cachectic 71-year-old female who is moaning in pain. VITAL SIGNS: Temperature 97.7, pulse 104, respirations 24, blood pressure 166/90. O2 saturation is 94% on 3 L of oxygen. HEENT EXAMINATION: Eyes PERRLA. Pharynx benign. NECK: Supple without adenopathy or thyromegaly. CHEST: Diminished breath sounds but clear. CARDIAC: Slightly tachy S1 and S2 without murmur. There is a port in the right upper chest. ABDOMEN: Bowel sounds are present. There is some distention of the right abdomen as compared to the left. Not particularly tender. EXTREMITIES: Without C, C or E. NEUROLOGIC EXAM: Patient is awake, alert. She is oriented. She has equal strength throughout. Cranial nerves are intact. DIAGNOSTIC STUDIES LABORATORY: Admission labs - hematocrit is 35.1, white blood count is 12.2. Normal platelet count. Normal coags. SMA-12 - sodium 132, potassium 3.4, chloride 98, albumin is 3.2, alk. phos. 95. Cardiac markers are negative. IMAGING: Chest x-ray - bilateral scarring or atelectasis. CTA was performed which was negative for PE, did show progression of lung mets into the chest, bone structures, and right adrenal gland. ASSESSMENT 1. Acute on chronic pain due to malignancy. 2. Stage 4 non-small cell lung cancer, progressive despite prior treatment. Patient is receiving home hospice care, but wants to be a full code. 3. COPD. 4. History of CAD. 5. Prior DVT. PLANS 1. Duragesic patch and increase oxycodone as needed. 2. DVT prophylaxis. 3. Gentle IV fluids. 4. Prognosis is poor. I do not believe the family or the patient understands that she is facing end of life issues. She wants to be a Full Code. Unit #: [id number] #: [id number] Patient: ANJANA MONTIELCAROLA Dictated by Karen Freeman M.D. AML/df TD: 04/16/2017 05:39 JOB #: [id number] HISTORY AND PHYSICAL Page 1 of 1 X Karen Freeman MD X HISTORY AND PHYSICAL
--- NOTE | ~2017-04-15 | CR72 ---
[facility] A Service of [facility] & [facility] RADIOLOGY TEXT RESULTS PATIENT: CAROLA LYNCH LOCATION: A : 44 UNIT #: [id number] AGE: [address]: Radha Eagle MD SEX: F ORDER DR: [id number] [facility] [address] [address] [facility]. [place], [place] [address] [id number] I MR#: [id number] Acc #: [id number] NAME: CAROLA LYNCH : 1945 SEX: F STUDY DATE/TIME: 04/15/2017 22:11 UNIT: [facility] ROOM: [facility] STUDY DESCRIPTION: CR Chest Single View Portable Attending Physician: Beto Maldonado M.D. Ordering Physician: Scott Brantley M.D. Primary Care Physician: No Primary Care Physician MEDICAL IMAGING REPORT This report is preliminary unless electronic signature is present EXAM Portable chest. INDICATIONS Chest pain and headache today. PROCEDURE Frontal view of the chest,. COMPARISON 03/12/2017. FINDINGS Heart size not significantly changed. There is bibasilar atelectasis or scarring. Stable chronic interstitial coarsening. No new dense consolidation, visible pleural fluid or pneumothorax. IMPRESSION Bibasilar scarring or atelectasis. No dense consolidation or other acute finding. Dictated by... Ramsey Wallis M.D. THIS IS AN ELECTRONICALLY VERIFIED REPORT Ramsey Wallis M.D. at 04/20/2017 8:57 AM EED/aniket TD: 04/16/2017 08:35 JOB #: [id number] MEDICAL IMAGING REPORT Page 1 of 1 COPY
--- NOTE | ~2017-04-15 | DS ---
Unit #: [id number] #: [id number] Patient: CAROLA LYNCH [id number] [id number] [facility]. [place], [place] [address] [id number] MR#: [id number] NAME: CAROLA LYNCH ROOM: 203 Age: 71 Sex: F Admission Date: 04/16/2017 : 1945 Discharge Date: 04/19/2017 Attending Physician: Radha Eagle M.D. Primary Care Physician: No Primary Care Physician DISCHARGE SUMMARY DIAGNOSIS ON ADMISSION Acute intractable pain with stage IV nonsmall cell lung cancer. DIAGNOSES ON DISCHARGE 1. Stage IV nonsmall cell lung cancer, intractable pain. 2. Chronic pain syndrome. 3. Chronic obstructive pulmonary disease. 4. Coronary artery disease. 5. History of multiple skin grafts in past. 6. History of deep venous thrombosis. CONSULTATION Dr. Marks in oncology consultation. HOSPITAL COURSE A 71-year-old patient was admitted to [facility] with severe pain. Details are as per admission H and P. Patient was admitted in the hospital and was seen by Dr. Marks and group in consultation. Patient was treated with pain medications. Her pain is better controlled. She was seen by hospice. Today patient is comfortable, is not in any acute distress and he will be discharged home. PHYSICAL EXAMINATION VITAL SIGNS: Her vital signs reveal temperature of 97.6, pulse is 98 per minute, respiratory rate is 16 per minute, blood pressure 107/53. HEENT: Revealed no conjunctival congestion. Sclerae is nonicteric. NECK: Supple. Trachea is central. RESPIRATORY: Revealed decreased breath sounds bilaterally. There are no wheezes or crackles. HEART: Regular rate and rhythm. S1, S2. ABDOMEN: Soft and nontender. Bowel sounds are present in all four quadrants. EXTREMITIES: Reveal trace pedal edema. SKIN: Warm and dry. I discussed with patient's son via insulation helper who is comfortable with patient going home. Hospice has already discussed with patient and will continue to followup at home. RECOMMENDATIONS ON DISCHARGE Condition stable. Activity as tolerated. MEDICATIONS 1. DuoNeb. Unit #: [id number] #: [id number] Patient: CAROLA LYNCH 2. Mini neb treatment q.6 hours p.r.n. 3. Tylenol 325 mg p.o. q.4 hours p.r.n. 4. Dexamethasone 4 mg p.o. daily. 5. Nystatin swish and swallow 5 mL t.i.d. 6. Lorazepam 1 mg p.o. q.4 hours p.r.n. which is present at home. 7. Senokot S two tablets p.o. b.i.d. 8. Fentanyl patch 50 mcg a patch three days. 9. Oxycodone 30 mg p.o. q.4 hours p.r.n. for pain. Patient was given a prescription for fentanyl patch and was also given oxycodone prescription at the request at Dr. Mckay Marks as he was unable to write the prescriptions. The plan was discussed in detail with patient and her son. Please make note: The patient is DNR. Dictated by... Kendall Carl TD: 04/19/2017 16:26 JOB #: [id number] CC: Mckay Marks M.D. DISCHARGE SUMMARY Page 1 of 1 X Radha Eagle MD X DISCHARGE SUMMARY
--- NOTE | ~2017-04-15 | EKG ---
PATIENT: CAROLA LYNCH UNIT #: [id number] Ventricular Rate: 93 BPM Atrial Rate: 93 BPM P-R Interval: 162 ms QRS Duration: 80 ms Q-T Interval: 376 ms QTC Calculation(Bezet): 467 ms P Colton: 83 degrees Calculated R Colton: 77 degrees Calculated T Colton: 81 degrees Diagnosis Line: Normal sinus rhythm Diagnosis Line: Normal ECG Diagnosis Line: When compared with ECG of 15-APR-2017 21:24, Diagnosis Line: (unconfirmed) Diagnosis Line: No significant change was found Diagnosis Line: Confirmed by KOFI DEY MD ([id number]) on Diagnosis Line: 04/16/2017 10:53:48 AM INTERPRETING MD: YISSEL JORDAN
--- NOTE | ~2017-04-15 | CO ---
Unit #: [id number] #: [id number] Patient: CAROLA LYNCH [id number] [place], [place] [address] [id number] I MR#: [id number] NAME: CAROLA LYNCH ROOM: 203 Age: 71 Sex: F Admission Date: 04/18/2017 : 1945 Attending Physician: Radha Eagle M.D. Primary Care Physician: No Primary Care Physician Consultation Date: 04/19/2017 CONSULTATION REPORT Attending physician - Dr. Karen Freeman. REASON FOR EVAL Stage 4 lung cancer, please evaluate. HISTORY OF PRESENT ILLNESS 71-year-old lady today I met from the son and the supply analyst and I asked her specifically if she understood the diagnosis she has and the prognosis she has and she states that she does. 71-year-old lady with stage non-small cell lung cancer, status post chemoradiation therapy with evidence of progressive disease. Now, instead of stage 3 is a stage 4 and was sent home with [facility]. Presented back again with intractable pain and now the pain medication is being adjusted. PAST HISTORY Remarkable for: 1. COPD. 2. Acute on chronic bronchitis. 3. History of stage [address] scan shows adrenal mets which is making it a stage 4 plus progressive disease. Please see the chart for further details. CHRONIC MEDICATIONS 1. Roxanol. 2. Ativan. 3. Humibid. 4. DuoNeb. 5. Oxycodone. 6. Simethicone. 7. Dexamethasone. 8. Senna. ALLERGIES No known allergies. FAMILY HISTORY Negative for cluster of cancer. SOCIAL HISTORY Lives with her son. She is [place] by origin and does not speak [place] and we had the supply analyst plus also the son speaks fluent [place]. Currently, nonsmoker. No alcohol usage. Unit #: [id number] #: [id number] Patient: CAROLA LYNCH REVIEW OF SYSTEMS Increasing shortness of breath. Tightness in the chest periodically. Backache periodically and decreased appetite. Otherwise, 6 or 8 systems were within normal limits. PHYSICAL EXAMINATION GENERAL: She is very drowsy. Voices that there is no pain currently. Son is with the patient and states that she fully understands the diagnosis and prognosis and has left everything in the hand of the Lord. LUNGS: Decreased air entry. There is atrophy of upper and lower extremity musculature. ABDOMEN: Scaphoid. No organomegaly. PALEOLOGY TEACHER: Grossly intact. Detailed PALEOLOGY TEACHER exam was not performed. PELVIC EXAM AND BREAST EXAM: Not performed. DIAGNOSTIC STUDIES IMAGING: CT angio done April 16 was reviewed and it shows evidence of progressive disease and increase in size of the right adrenal nodule making it a known metastatic disease, making it a stage 4. LABORATORY: Glucose 104, BUN 14, creatinine 0.5, sodium 132, potassium 3.4, chloride 98, CO2 28, hemoglobin 11.2, hematocrit 35.1, white count 12.2, platelets 220,000. IMPRESSION This 71-year-old lady who doesn't speak Burkinan at all and has a son and today I had the interpretation. We went over the diagnosis, prognosis and that there is no chemotherapy or radiation therapy planned. Value of [facility] care at home so she doesn't have to be dragged to the hospital every time was explained and she states, and the son states, that all of them understand all the above. So at this point, I would titrate the pain medication for comfort, discharge her home with [facility] care. The [facility] nurse was available and I discussed with her and they are going to go to her home and tuck her in as they call it post discharge. Dictated by... Mckay Marks M.D. HOANG/ana TD: 04/19/2017 13:07 JOB #: [id number] CONSULTATION REPORT Page 1 of 1 X Mckay Marks MD CONSULTATION REPORT
[~2017-04-15 21:12] MED LIST changes: +ROXANOL W/DR20 MG/ML PO
[2017-04-15 22:16] LABS: POC - CKMB 1.2 ng/mL (0.0-7.9); POC - TROPONIN <0.05 ng/mL (<=0.05)
[2017-04-15 22:19] LABS: BASOPHIL% 0.2 % (0-2.5); EOSINOPHIL# 0.1 X10e3 (0-0.7); EOSINOPHIL% 0.8 % (0.0-7.0); HEMATOCRIT 35.1 % (35.0-45.0); HEMOGLOBIN 11.2 gm/dL (12.0-16.0); LYMPHOCYTE# 1.7 X10e3 (1.0-3.5); LYMPHOCYTE% 13.6 % (17.0-45.0); MEAN CELL VOLUME 95.3 FL (83-96); MEAN CORPUSCULAR HEMOGLOBIN 30.5 PG (28-34); MEAN CORPUSCULAR HGB CONC 32.1 g/dL (30-36); MEAN PLATELET VOLUME 7.1 FL (6.5-11.5); MONOCYTE# 0.9 X10e3 (0-1.0); MONOCYTE% 7.7 % (3.0-12.0); NEUTROPHIL# 9.5 X10e3 (1.5-7.1); NEUTROPHIL% 77.7 % (40-75); PLATELET COUNT 220 X10e3 (140-420); RED BLOOD COUNT 3.68 X10e (3.90-5.30); RED CELL DISTRIBUTION WIDTH 18.3 % (11.0-15.5); WHITE BLOOD COUNT 12.2 X10e3 (4.0-10.5)
[2017-04-15 22:25] LABS: DIFF IND NO
[2017-04-15 22:34] LABS: INR 0.9; PARTIAL THROMBOPLASTIN TIME 23.8 SECONDS (23.5-31.3); PROTHROMBIN TIME (PATIENT) 10.1 SECONDS (10.0-11.7)
[2017-04-15 22:51] LABS: ALBUMIN SERUM 3.2 g/dL (3.5-5.0); BILIRUBIN,TOTAL 0.3 mg/dL (0.2-2.0); CALCIUM SERUM 8.6 mg/dL (8.4-10.2); CREATININE SERUM 0.5 mg/dL (0.6-1.4); GLOM FILT RATE Estimated 96.7 mL/min (>60); POTASSIUM 3.4 mmol/L (3.5-5.1); PROTEIN TOTAL SERUM 6.5 g/dL (6.0-8.3)
[2017-04-15 22:54] LABS: BILIRUBIN, DIRECT 0.1 mg/dL (0.0-0.2); BILIRUBIN,INDIRECT 0.2 mg/dL (0.0-0.9)
[2017-04-15 23:47] LABS: POC - CKMB 1.3 ng/mL (0.0-7.9); POC - TROPONIN <0.05 ng/mL (<=0.05)
[2017-04-16] MEDS ORDERED: LORAZEPAM1 MG PO (00:58)
[2017-04-16] MEDS ORDERED: NYSTATIN1 EAC1 MT (00:58)
[2017-04-16] MEDS ORDERED: DEXAMETHASONE4 MG PO (00:59)
[2017-04-16] MEDS ORDERED: SENNA-S TABLET1 EAC1 PO (00:59)
[2017-04-16] MEDS ORDERED: TYL325 PO (01:00)
[2017-04-16] MEDS ORDERED: OXYCODONE HCL20 M1 PO (01:00)
[2017-04-16] MEDS ORDERED: SIMETHICONE125 M1 PO (01:01)
[2017-04-19] MEDS ORDERED: OXYCODONE HCL30 MG PO (13:22)
[2017-04-19] MEDS ORDERED: DURAGESIC1 EAC1 TD (13:25)
[2017-04-23] MEDS ORDERED: IPRATR-ALBUTEROL3 ML NEB (10:25)
[2017-04-23] MEDS ORDERED: DEXAMETHASONE4 MG PO (10:25)
[2017-04-23] MEDS ORDERED: ATIVAN PO (10:25)
[2017-04-23] MEDS ORDERED: DURAGESIC1 EAC1 TOP (10:27)
[2017-04-23] MEDS ORDERED: GUAIFENESIN LA600 M1 PO (10:27)
[2017-04-23] MEDS ORDERED: SENNA8.6 M1 PO (10:28)
[2017-04-23] MEDS ORDERED: OXYCONTIN PO (10:28)
[2017-04-23] MEDS ORDERED: NYSTATIN100000 UN1 PO (10:28)
[2017-04-23] MEDS ORDERED: GAS-X125 MG PO (10:29)
[2017-04-23] MEDS ORDERED: TYL325 PO (10:29)
[2017-04-23] MEDS ORDERED: PATIENT'S PHARMACY (10:30)
== END 2017-04-19 14:16 | DRG 948 ==
LOC: CED 21:12 → CEDOF 04-16 02:30 → CED 04-16 02:30 → CEDOF 04-16 02:32 → CED 04-16 02:32 → C2A 04-16 02:32 → CEDOF 04-16 04:00 → C2A 04-16 08:11 → CEDOF 04-16 16:10 → C2A 04-16 16:10 → CED 04-16 16:10 → C2A 04-18 16:10 → CEDOF 04-18 16:10 → C2A 04-19 09:00
PROVIDERS: Emergency Medicine
PROC: B32TYZZ Computerized Tomography (CT Scan) of Left Pulmonary Artery using Other Contrast (ICD-10-PCS; principal; 2017-04-16)
PROC: B32SYZZ Computerized Tomography (CT Scan) of Right Pulmonary Artery using Other Contrast (ICD-10-PCS; 2017-04-16)
DX: G89.3 Neoplasm related pain (acute) (chronic) (principal); J44.9 Chronic obstructive pulmonary disease, unspecified; C34.90 Malignant neoplasm of unspecified part of unspecified bronchus or lung; Z87.891 Personal history of nicotine dependence; G89.4 Chronic pain syndrome; I25.10 Atherosclerotic heart disease of native coronary artery without angina pectoris; Z51.5 Encounter for palliative care; Z98.51 Tubal ligation status; Z86.718 Personal history of other venous thrombosis and embolism
CPT/HCPCS: 36415; 71010; 71275; 80048; 80076; 82553; 84484; 85025; 85610; 85730; 93005; 94640; 94760; 96374; 96376; 99285; J1170; J1650; J2405; Q9967